=== PATIENT | female | born 1965 | race Caucasian/White ===

== ENCOUNTER 2020-09-15 08:15 | Outpatient (REF) | payer OTHER, SELFPAY ==
[2020-09-15 08:40] LABS: MANUAL DIFF FLAG NO
[2020-09-15 08:48] LABS: Basophils Absolute Auto 0.1 X10*3/uL (0.0-0.2); Basophils Percent Auto 0.8 % (0-2); Eosinophils Absolute Auto 0.1 X10*3/uL (0.0-0.4); Eosinophils Percent Auto 1.5 % (0-4); Hematocrit 42.5 % (37-47); Imm Gran Abs Auto 0.02 X10*3/uL (0.00-0.03); Imm Gran Pct Auto 0.3 % (0.0-0.4); Lymphocytes Absolute Auto 1.8 X10*3/uL (1.2-4.9); Lymphocytes Percent Auto 29.6 % (20-40); Mean Corpuscular HGB Conc 32.9 g/dl (31.0-35.0); Mean Corpuscular Hemoglobin 30.2 pg (27.0-33.0); Mean Corpuscular Volume 91.6 fL (80-98); Mean Platelet Volume 9.4 fL (9.4-12.3); Monocytes Absolute Auto 0.4 X10*3/uL (0.1-1.2); Monocytes Percent Auto 6.5 % (2-11); Neutrophils Absolute Auto 3.7 X10*3/uL (2.0-8.3); Neutrophils Percent Auto 61.3 % (45-73); Platelet Count 355 X10*3/uL (160-400); Red Blood Count 4.64 X10*6/uL (4.20-5.50); Red Cell Distribution Width 11.8 % (11.0-16.0)
[2020-09-15 09:08] LABS: Alanine Aminotransferase 29 U/L (0-31); Albumin Level 4.1 g/dL (3.5-5.0); Alkaline Phosphatase 96 U/L (39-117); Anion Gap 11 (12-20); Aspartate Amino Transferase 18 U/L (5-31); Bilirubin Total 0.4 mg/dL (0.0-1.0); Blood Urea Nitrogen 12 mg/dL (9-16); Carbon Dioxide 28 mmol/L (22-29); Chloride 105 mmol/L (96-108); Cholesterol 288 mg/dL; Estimated Glomerular Filt Rate > 60; Glucose Fasting 101 mg/dL (60-99); HDL Cholesterol 49 mg/dL; LDL Cholesterol Calculated 196 mg/dl; Potassium 4.3 mmol/l (3.3-5.1); Sodium 140 mmol/L (135-145); Total Protein 6.5 g/dL (6.5-8.0); Triglycerides 216 mg/dL
[2020-09-15 09:20] LABS: TSH reflex Free T4 1.21 mIU/mL (0.32-4.0)
[2020-09-15 09:36] LABS: Estimated Average Glucose 114 mg/dL; Hemoglobin A1c % 5.6 %
== END 2020-09-15 08:16 | disposition home or self-care (01) ==
LOC: HO.LAB 08:15
PROVIDERS: PCP Physician Assistant; Visit Provider Physician Assistant
DX: E78.5 Hyperlipidemia, unspecified (principal)
CPT/HCPCS: 36415; 80053; 80061; 83036; 84443; 85025

== ENCOUNTER 2020-10-31 08:11 | Day surgery (SDC) | payer OTHER, SELFPAY ==
[2020-10-27 10:55] VITALS: BMI 39.3
--- NOTE | 2020-10-30 09:46 | HO.ANESPROP2 ---
Documented by User: Ana María Mason 10/30/20 09:47 HPI - Anesthesia Eval Consult details Narrative: 55yo F for Colonoscopy PMFSH Past Medical History Medical History Arthritis History of anxiety History of depression Hyperlipidemia Surgical History Surgical History Hx of section Hx of colonoscopy Social History Social History Smoking Status: Never smoker Use of substances other than those prescribed or required for medical reasons: No Have you been hit, kicked, punched, or otherwise hurt by someone within the past year? If so, by whom?: No Advance Directives: No Advance Directives Information Provided: No Advance Directives on File: No Recently lost weight without trying: No Meds Allergies Allergy/AdvReac Type Severity Reaction Status Date / Time No Known Allergies Allergy Unverified 10/27/20 10:55 [No Known Allergies*] Exam Exam Date and Time: October 30, 2020 0946 Height,Weight and Vital Signs: Height 5 ft 2 in Weight 97.522 kg Pertinent Lab Results Pertinent Lab Results: Laboratory Tests 09/15/20 12 08:22 08:22 WBC 6.0 Hgb 14.0 Hct 42.5 Plt Count 355 Sodium 140 Potassium 4.3 Chloride 105 Carbon Dioxide 28 BUN 12 Creatinine 0.67 Assessment and Plan Assessment Anesthesia Assessment: Chart Reviewed Documented by User: Citlaly Ryan 10/31/20 08:54 PMFSH Past Medical History Medical History Arthritis History of anxiety History of depression Hyperlipidemia Surgical History Surgical History Hx of section Hx of colonoscopy Social History Social History Smoking Status: Never smoker Use of substances other than those prescribed or required for medical reasons: No Have you been hit, kicked, punched, or otherwise hurt by someone within the past year? If so, by whom?: No Advance Directives: No Advance Directives Information Provided: No Advance Directives on File: No Recently lost weight without trying: No Meds Allergies Allergy/AdvReac Type Severity Reaction Status Date / Time No Known Allergies Allergy Unverified 10/27/20 10:55 [No Known Allergies*] Exam Airway Mallampati Class: III (Very poor mouth opening) TM Dist: >3cm Neck ROM: Full Loose/Missing/Broken Teeth: No Heart: RRR Lungs: CTA Assessment and Plan Assessment Anesthesia Assessment: Anesthesia Plan Discussed and Chart Reviewed Final Anesthetic Review NPO: Yes ASA Class: II Final Preanesthetic Review: Meds/Allgs Chart Reviewed, Consent Obtained/Reviewed and Anes Risks/Benef Reviewed Patient Risk: Low Procedure Risk: Low Anesthetic Plan Anesthetic Plan: MAC: Disposition: Standard PACU
[2020-10-31 08:43] VITALS: BP 120/73; PULSE 69; RESP 17; TEMP 36.2; O2SAT 97
[2020-10-31] MEDS: Lactated Ringers 1,000 ML 100 ML IVCONT (08:59)
--- NOTE | 2020-10-31 08:59 | P.HPSUR_ITS ---
Pre-Procedural Eval Section A The patient is an INPATIENT: No The History & Physical has been completed within 30 days and I have reviewed it.: No Section B Chief Complaint: Screening Details of Present Illness: 55-year-old female female personal history are colon polyp due for polyp surveillance colonoscopy. She has no GI complaints. Relevant Family History (Specify if Yes): No Relevant Social History: None Present Medications: see Short Stay Collaborative assessment Medical History: Significant History ( Anxiety. Depression. Hy perlipidemia. Gestational diabetes. Cervical radiculopathy. vitamin D deficiency. Vertigo. ) History of Previous Operations: Relevant previous surgery/procedure and date(s) (C section in 2005) Allergies: Allergies Allergy/AdvReac Type Severity Reaction Status Date / Time No Known Allergies Allergy Unverified 10/27/20 10:55 [No Known Allergies*] Review of Systems Sugical H&P ROS: Negative: Constitution, Cardiovascular, Respiratory and Gastrointestinal and Yes, Specify: Psychiatric (anxiety) Exam Surgical H&P Exam: Normal: Heart, Normal: Lungs, Normal: Extremities and Normal: Abdomen Plan Diagnosis/Plan: Unchanged I have reviewed the history and physical and performed a pertinent physical examination on my patient. No changes have occurred unless specified.
--- NOTE | 2020-10-31 08:59 | W.PM.OPN ---
Operative Note Operative Note Date of Service: 10/31/20 Narrative: Pre-op diagnosis: Colon cancer screening, history of colon polyps Post-op diagnosis: other (Colon polyps, diverticulosis, hemorrhoids) Procedure: COLONOSCOPY TILL CECUM WITH SNARE POLYPECTOMY Consent: Indications for the procedure and potential complications of bleeding, perforation, reaction to medications and missed diagnosis were discussed with the patient and informed consent was obtained. Instrument: Olympus PCF H 190 L variable stiffness pediatric colonoscope Monitoring: Vital signs and clinical assessment, intermittent blood pressure monitoring, continuous EKG monitoring, Pulse oximetry and Carbon Dioxide monitoring were done throughout the procedure. Colon withdrawl time was 32 minutes. Procedure: The patient was placed in the left lateral decubitis position and pre-procedure medications were administered. After a digital rectal examination of the ano-rectum, the video colonoscope was inserted into the rectum and advanced through the colon to the cecum. The colonoscope was slowly withdrawn in a retrograde panoramic fashion and the colon mucosa was carefully examined including a retroflexed view of the rectum. Findings and interventions are described below. Procedure Difficulty: Without difficulty Findings: Terminal Ileum: Not evaluated Cecum: Normal Ascending Colon: A 10-12 mm sessile polyp removed with a hot snare. A 2nd 10 mm sessile polyp (behind a fold in the mid AC) was seen briefly and not seen again despite multiple passes through the area and retroflexion of the colonoscopy Transverse Colon: Two 10-15 mm sessile polyps removed with a hot snare. Descending Colon: Normal Sigmoid Colon: A 10 mm sessile polyp removed with a hot snare and moderate diverticulosis Rectum: A 2 cm sessile polyp removed with a hot snare. Ano-rectum: Moderate internal hemorrhoids Colon preparation: Good Impression and Post Procedure Diagnosis: Colonoscopy Findings: Five polyps removed. A sixth 9 - 10 mm sessile polyp (behind a fold in the mid AC) was seen briefly and not seen again despite multiple passes through the area and retroflexion of the colonoscopy Moderate diverticulosis seen in the sigmoid colon Moderate hemorrhoids on retroflexed exam. Plan: Await pathology results Patient has an appointment on 11/11/20 in the [facility] with TERE Colby. Repeat Colonoscopy in 1 year since multiple polyps were removed and one polyp was seen briefly and was not removed. Above findings were reviewed with the patient and colon polyps and diverticulosis handouts were given in the discharge area Surgeon: Carlos Guzman MD Anesthesia: MAC (ELIZABETH Warner) Estimated blood loss (mL): 0 Pathology: other (A. AC polyp x 1, B. TC polyps x 2, C. SC polyp x 1, D. rectal polyp x 1) Condition: stable Disposition: PACU
[2020-10-31 10:05] VITALS: BP 96/57; PULSE 61; RESP 16; TEMP 36.2; O2SAT 96
[2020-10-31 10:22] VITALS: BP 109/67; PULSE 64; RESP 16; TEMP 36.2; O2SAT 97
[2020-10-31 10:37] VITALS: BP 115/73; PULSE 61; RESP 16; TEMP 36.2; O2SAT 98
--- NOTE | 2020-10-31 10:53 | HO.POSTANES ---
Post Anesthesia Evaluation Post Anesthesia Evaluation Vital Signs: Vital Signs Temp Pulse Resp BP Pulse Ox 10/31/20 10:37 97.2 F 61 16 115/73 98 10/31/20 10:22 97.1 F 64 16 109/67 97 10/31/20 10:05 97.1 F 61 16 96/57 L 96 10/31/20 08:43 97.1 F 69 17 120/73 97 Anesthesia: Monitored Mental Status: Awake Pain Control: Satisfactory Nausea/Vomiting: None Hydration: Adequate Anesthesia-Related Issues: No Anes. Related Issues
== END 2020-10-31 10:57 | disposition home or self-care (01) ==
PROVIDERS: PCP Physician Assistant; Visit Provider Internal Medicine Gastroenterology
PROC: 0DJD8ZZ Inspection of Lower Intestinal Tract, Via Natural or Artificial Opening Endoscopic (ICD-10-PCS; CPT 45378; principal; 2020-10-31 10:30)
DX: Z12.11 Encounter for screening for malignant neoplasm of colon (principal); Z86.010 Personal history of colon polyps; D12.2 Benign neoplasm of ascending colon; D12.3 Benign neoplasm of transverse colon; D12.5 Benign neoplasm of sigmoid colon; D12.8 Benign neoplasm of rectum; K57.30 Diverticulosis of large intestine without perforation or abscess without bleeding; K64.8 Other hemorrhoids
CPT/HCPCS: 45385; 88305

== ENCOUNTER → 2020-11-11 11:30 | Outpatient (BNVA) | payer OTHER, SELFPAY | PROVIDERS: PCP Physician Assistant; Visit Provider Physician Assistant ==

== ENCOUNTER 2021-07-28 08:08 | Outpatient (REF) | payer OTHER, SELFPAY ==
--- NOTE | 2021-07-28 09:45 | MHC.AU.ANO ---
Adult Audiological Evaluation Date of Visit: 07/28/21 Bowling Ball Patcher Used: Not Applicable Reason for Appointment: Audiologic evaluation due to bothersome tinnitus which has increased over the past 18 months. The tinnitus seems to fluctuate for both ears; however, it seems to be more prominent in the left ear. Lissa reports a history of intermittent Positional Vertigo which benefits from Vestibular Rehabilitation and also experiences intermittent migraines with nausea and vomiting. She does not report any hearing difficulties or history of noise exposure. Lissa notes that, many years ago, she did experience one episode of head trauma when moving a dresser off a moving truck which hit the left side of her head. Vertigo occurred immediately following the head trauma. With further discussion of Lissa's history, it is noted her stress and anxiety has increased due to family illness over the past year; however, she has experienced the tinnitus long before this time. Does patient feel they have a hearing loss?: No Has hearing been tested previously?: No Hearing Handicap Inventory: HHIE SCORE: 0 Based on HHIE score, patient has: No perceived hearing handicap Ear History: Family History of Hearing Loss?: Yes: Parents Bothersome Tinnitus/Ringing/Noises in Ears: Both Ears Ear used on the phone: Right Ear History of occupational noise exposure?: No History: History: No Medical History: Medical History: Migraines Medication List: None Otoscopy: Right Ear: Unremarkable Left Ear: Unremarkable Tympanometry: Tympanometry performed due to: To assess integrity of the middle ear system Right Ear: Normal with Reduced Middle Ear Compliance (Type As) Left Ear: Normal Middle Ear System (Type A) Otoacoustic Emissions Frequency Range Used: 1.6-8 kHz Right Ear Results: Present Emissions Analysis: Present emissions suggest normal cochlear function Rules out peripheral hearing loss greater than a mild degree Left Ear Results: Present 1007-4540 Hz, Absent 7226-5377 Hz Analysis: Present emissions suggest normal cochlear function Reduced/Absent emissions suggest cochlear dysfunction Hearing Evaluation: Transducer(s) Used: Insert Earphones Bone Conduction Method: Conventional Audiometry Stimuli Used: Pure Tones Right Ear: Description of Hearing: Normal hearing thresholds 250-8000 Hz. Left Ear: Description of Hearing: Normal hearing levels 250-3000 Hz, dropping to a moderate sensorineural hearing loss at 9191-9755 Hz, rising to normal hearing at 8000 Hz. Speech Recognition Threshold (SRT): Method Used: Monitored Live Voice Stimuli Used: Spondee Words Right Ear: 0 dB HL Left Ear: 0 dB HL Word Discrimination: Method: Recorded Lists Word Lists Used: NU-6 Right Ear: 100% at 45 dB HL Left Ear: 100% at 45 dB HL Interpretation of Results: Often the notched moderate sensorineural hearing loss for the left ear at 4000 and 6000 Hz is seen with acoustic trauma; however, Lissa reports she has no history of noise exposure. This high frequency sensorineural hearing loss may relate to the perception of tinnitus which often if greater in the left ear. We discussed the various theories of tinnitus today including how stress, anxiety, fatigue, and pain may influence the perception of tinntius. Lissa already implements managment strategies such as sound therapy to try to reduce the perception of the tinnitus. She is not interested in trying a tinnitus masker at this time. Recommendations: Due to the asymmetric hearing loss, tinnitus, and history of vertigo and migraines, advise medical consultation with an Certified Registered Locksmith for further assessment of the symptoms. Audiological re-evaluation in one year. Will send a reminder card. If tinnitus or hearing symptoms increase before that time, an earlier appointment may be scheduled. Diagnosis: Primary Diagnosis: H93.13 Tinnitus, Bilateral Secondary Diagnosis: H90.42 SNHL Unilateral Left Side, W/Unrestricted Contralateral Hearing Services Performed: Comprehensive Audiological Evaluation (CPT 58334) Diagnostic Otoacoustic Emissions (CPT 79302, 26+TC) Tympanometry (CPT 77299) Signature: Provider: Radha Long, [facility]
== END 2021-07-28 08:09 | disposition home or self-care (01) ==
LOC: HO.SH 08:08
PROVIDERS: Visit Provider Physician Assistant
DX: H93.13 Tinnitus, bilateral (principal); H90.42 Sensorineural hearing loss, unilateral, left ear, with unrestricted hearing on the contralateral side
CPT/HCPCS: 92557; 92567; 92588

== ENCOUNTER → 2021-09-08 08:15 | Outpatient (BNVA) | payer OTHER, SELFPAY | PROVIDERS: Visit Provider Nurse Practitioner | DX: D12.6 Benign neoplasm of colon, unspecified (principal) ==

== ENCOUNTER 2021-09-09 13:22 | Outpatient (REF) | payer OTHER, SELFPAY ==
[2021-09-09 13:40] LABS: MANUAL DIFF FLAG NO
[2021-09-09 14:13] LABS: Basophils Absolute Auto 0.1 X10*3/uL (0.0-0.2); Basophils Percent Auto 0.6 % (0-2); Eosinophils Absolute Auto 0.1 X10*3/uL (0.0-0.4); Hematocrit 42.3 % (37.0-47.0); Imm Gran Abs Auto 0.03 X10*3/uL (0.00-0.03); Imm Gran Pct Auto 0.3 % (0.0-0.4); Lymphocytes Absolute Auto 2.8 X10*3/uL (1.2-4.9); Lymphocytes Percent Auto 29.1 % (20-40); Mean Corpuscular HGB Conc 33.1 g/dl (31.0-35.0); Mean Corpuscular Hemoglobin 30.2 pg (27.0-33.0); Mean Corpuscular Volume 91.2 fL (80.0-98.0); Mean Platelet Volume 9.7 fL (9.4-12.3); Monocytes Absolute Auto 0.7 X10*3/uL (0.1-1.2); Monocytes Percent Auto 7.4 % (2-11); Neutrophils Absolute Auto 5.9 x10*3/uL (2.0-8.3); Neutrophils Percent Auto 61.6 % (45-73); Platelet Count 400 X10*3/uL (160-400); Red Blood Count 4.64 X10*6/uL (4.20-5.50); White Blood Count 9.6 X10*3/uL (4.8-10.8)
[2021-09-09 14:44] LABS: Alanine Aminotransferase 45 U/L (0-31); Albumin Level 4.1 g/dL (3.5-5.0); Alkaline Phosphatase 100 U/L (39-117); Anion Gap 14 (12-20); Aspartate Amino Transferase 23 U/L (5-31); Bilirubin Total 0.4 mg/dL (0.0-1.0); Blood Urea Nitrogen 13 mg/dL (9-16); Calcium 9.7 mg/dL (8.4-10.2); Carbon Dioxide 26 mmol/L (22-29); Chloride 105 mmol/L (96-108); Cholesterol 323 mg/dL; Estimated Glomerular Filt Rate > 60; Glucose Random 99 mg/dL (60-115); HDL Cholesterol 49 mg/dL; LDL Cholesterol Calculated 218 mg/dl; Potassium 4.7 mmol/L (3.3-5.1); Sodium 140 mmol/L (135-145); Total Protein 6.8 g/dL (6.5-8.0); Triglycerides 284 mg/dL
== END 2021-09-09 13:23 | disposition home or self-care (01) ==
LOC: HO.LAB 13:22
PROVIDERS: PCP Physician Assistant; Visit Provider Nurse Practitioner
DX: D12.6 Benign neoplasm of colon, unspecified (principal); E78.5 Hyperlipidemia, unspecified
CPT/HCPCS: 36415; 80053; 80061; 85025

== ENCOUNTER 2021-12-18 10:25 | Outpatient (REF) | payer OTHER, SELFPAY ==
--- NOTE | ~2021-12-18 | XR_ITS ---
EXAMINATION: XR CHEST CLINICAL INFORMATION: Cough COMPARISON: Previous chest x-ray March 2015 TECHNIQUE: 2 views of the chest were obtained. FINDINGS: The cardiac and mediastinal contours are stable. The lungs are clear. There is no pleural effusion or pneumothorax. There are degenerative changes of the spine area there is arthritis at the shoulder joints. XR/XR chest 2V IMPRESSION: No evidence for acute disease in the chest.
== END 2021-12-18 10:26 | disposition home or self-care (01) ==
LOC: HO.XRAY 10:25
PROVIDERS: PCP Physician Assistant; Visit Provider Nurse Practitioner Family
DX: R05.9 Cough, unspecified (principal)
CPT/HCPCS: 71046

== ENCOUNTER 2022-02-02 07:58 | Day surgery (SDC) | payer OTHER, SELFPAY ==
--- NOTE | 2021-10-14 12:04 | P.CONAN_ITS ---
HPI - Anesthesia Eval Consult details Narrative: 56yo F for Colon[facility] Problems Active Problems: All Active Problems (Updated 09/25/21 @ 09:43 by PEDRO Rain) Cough (Acute) Rhinitis (Acute) Otitis media (Acute) Hematochezia (Acute) Gastrointestinal multiple polyposis syndrome (Acute) Tinnitus, bilateral (Acute) HLD (hyperlipidemia) (Acute) ABBY (generalized anxiety disorder) (Acute) Past Medical History Medical History Arthritis Colon adenomas History of anxiety History of depression Hyperlipidemia Family History Family History (Updated 09/25/21 @ 09:16 by MANUEL Barraza) Paternal Grandmother FH: colon cancer Paternal Aunt FH: colon cancer Mother Colon polyps Surgical History Surgical History Hx of section Hx of colonoscopy Social History Social History (Updated 09/25/21 @ 09:16 by MANUEL Barraza) Household Members: Sp[facility] Alcohol intake: former Year quit: 25 Patient Tobacco Use Status: Never used Tobacco e-Cigarette/Vaping Use: Never Used Second Hand Smoke Exposure: No service: No Current occupational status: employed 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[employer] Cognitive needs: No Hearing needs: No Vision needs: Yes (glasses) Meds Allergies Allergy/AdvReac Type Severity Reaction Status Date / Time No Known Allergies Allergy Verified 09/25/21 09:39 [No Known Allergies*] Home Medications Medication Instructions Recorded Confirmed Last Taken Type acetaminophen 325 mg tablet 650 mg PO 10/31/20 09/25/21 10/31/20 History (Tylenol) Exam Exam Date and Time: October 14, 2021 1204 Pertinent Lab Results Pertinent Lab Results: Laboratory Tests 09/09/21 09/09/21 13:35 13:35 WBC 9.6 Hgb 14.0 Hct 42.3 Plt Count 400 Sodium 140 Potassium 4.7 Chloride 105 Carbon Dioxide 26 BUN 13 Creatinine 0.66 Assessment and Plan Assessment Anesthesia Assessment: Chart Reviewed
[2022-02-02 08:08] VITALS: BMI 39.9
[2022-02-02 08:22] VITALS: BP 140/95; PULSE 61; RESP 18; TEMP 36.8; O2SAT 98
--- NOTE | 2022-02-02 08:26 | MHC.SHP ---
Pre-Procedural Eval Section A Date of Service: 02/02/22 Section B Chief Complaint: rectal bleeding Details of Present Illness: FH of CRC in aunts, grandmother Relevant Family History (Specify if Yes): Yes Relevant Social History: None Present Medications: see Short Stay Collaborative assessment Medical History: Significant History (Arthritis History of anxiety History of depression Hyperlipidemia) History of Previous Operations: Relevant previous surgery/procedure and date(s) (colonoscopy, ) Allergies: Allergies Allergy/AdvReac Type Severity Reaction Status Date / Time No Known Allergies Allergy Verified 12/18/21 09:04 [No Known Allergies*] Review of Systems Sugical H&P ROS: Negative: Constitution, Cardiovascular, Respiratory, Neurological, Psychiatric, Hem-Onc, Allergic/Immunologic, Gastrointestinal, Genitourinary, Musculoskeletal, Integumentary, Endocrine and Eyes/Ears/Nose/Throat Exam Surgical H&P Exam: Normal: HEENT, Normal: Heart, Normal: Lungs, Normal: Extremities, Normal: Abdomen, Normal: Skin and Normal: Neurological Plan Diagnosis/Plan: Unchanged I have reviewed the history and physical and performed a pertinent physical examination on my patient. No changes have occurred unless specified.
--- NOTE | 2022-02-02 08:51 | P.BOP_ITS ---
Brief Operative Note Date of Service: 02/02/22 Pre-op diagnosis: hx of rectal bleeding and colon polyps, FH of cRC Post-op diagnosis: same Procedure: see op note Surgeon: Nava Ring MD Anesthesia: MAC Was an Copping Machine Operator used for this Procedure?: No Estimated blood loss (mL): 0 Condition: stable Disposition: PACU
--- NOTE | 2022-02-02 08:51 | W.PM.OPN ---
Operative Note Operative Note Date of Service: 02/02/22 Narrative: Operative Information Procedure Description: Colonoscopy Indication: hx of rectal bleeding and colon polyps, FH of CRC Anesthesia: MAC COLONOSCOPY Instrument: Olympus variable stiffness adult scope 190L Colonoscopy Monitoring: Vital signs and clinical assessment, continuous EKG monitoring, Pulse oximetry, Carbon Dioxide monitoring and blood pressure monitoring were done throughout the procedure. Colon withdrawal time was 13 minutes. Procedure: The patient was placed in the left lateral decubitis position and pre-procedure medications were administered. After a digital rectal examination of the ano-rectum, the video colonoscope was inserted into the rectum and advanced through the colon to the cecum/TI. The colonoscope was slowly withdrawn in a retrograde panoramic fashion and the colon mucosa was carefully examined including a retroflexed view of the rectum. Findings and interventions are described below. Procedure Difficulty: easy Findings: Terminal Ileum-normal Right sided retroflexion was normal Cecum:normal Ascending Colon: diminutive polyp 3-4 mm removed with cold forceps Transverse Colon -normal Descending Colon:10 mm sessile polyp removed with cold snare Sigmoid Colon: mild to moderate diverticulosis Rectum: Retroflexion with small internal hemorrhoids, grade I with skin tags Anorectum - normal Colon preparation: [place] Bowel Preparation Scale Right colon; 2 Transverse colon: 2 Left colon; 2 (0 = Unprepared colon segment with mucosa not seen due to solid stool that cannot be cleared. 1 = Portion of mucosa of the colon segment seen, but other areas of the colon segment not well seen due to staining, residual stool and/or opaque liquid. 2 = Minor amount of residual staining, small fragments of stool and/or opaque liquid, but mucosa of colon segment seen well. 3 = Entire mucosa of colon segment seen well with no residual staining, small fragments of stool or opaque liquid) Impression and Post Procedure Diagnosis: polyps internal hemorrhoids diverticular disease Plan: High fiber diet leaflet Avoid straining at stool, epsom salts and sitz bath, anusol supps or cream Repeat Colonoscopy in 5 years due to FH of CRC or earlier if clinically indicated Above findings were reviewed with the patient and relevant handouts were provided if indicated.
--- NOTE | 2022-02-02 08:59 | HO.ANESPROP2 ---
HPI - Anesthesia Eval Consult details Narrative: 56 yo female patient for colonoscopy [facility] Active Problems Active Problems: All Active Problems (Updated 12/18/21 @ 09:36 by ULI Yancey) COVID-19 virus infection (Acute) HLD (hyperlipidemia) (Acute) ABBY (generalized anxiety disorder) (Acute) Tinnitus, bilateral (Acute) Gastrointestinal multiple polyposis syndrome (Acute) Hematochezia (Acute) Otitis media (Acute) Rhinitis (Acute) Cough (Acute) Increased BMI. Denies STACEY Past Medical History Medical History Arthritis Colon adenomas History of anxiety History of depression Hyperlipidemia Family History Family History Paternal Grandmother FH: colon cancer Paternal Aunt FH: colon cancer Mother Colon polyps Family history of problems with anesthesia: No Surgical History Surgical History Hx of section Hx of colonoscopy History of Problems with Anesthesia: No Social History Social History Household Members: Spouse Housing: Condominium Alcohol intake: former Year quit: 25 Patient Tobacco Use Status: Never used Tobacco e-Cigarette/Vaping Use: Never Used Second Hand Smoke Exposure: No Use of substances other than those prescribed or required for medical reasons: No Are you DNR?: No Advance Directives: No Advance Directives Information Provided: Yes Patient : No (menopausal) service: No Current occupational status: employed 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[employer] Cognitive needs: No Hearing needs: No Vision needs: Yes (glasses) Meds Allergies Allergy/AdvReac Type Severity Reaction Status Date / Time No Known Allergies Allergy Verified 12/18/21 09:04 [No Known Allergies*] Active Medications: Current Medications Lactated Ringer's (Lr) 1,000 mls @ 100 mls/hr IVCONT .Q10H [facility] Home Medications Medication Instructions Recorded Confirmed Last Taken Type acetaminophen 325 mg tablet 650 mg PO 10/31/20 12/18/21 10/31/20 History (Tylenol) Exam Exam Date and Time: February 02, 2022 0859 Height,Weight and Vital Signs: Height 5 ft 2 in Weight 98.883 kg Last Vital Signs Temp 98.3 F 02/02/22 08:22 Pulse 61 02/02/22 08:22 Resp 18 02/02/22 08:22 BP 140/95 H 02/02/22 08:22 Pulse Ox 98 02/02/22 08:22 Airway Mallampati Class: IV (Very small mouth opening) TM Dist: >3cm Neck ROM: Full Loose/Missing/Broken Teeth: Yes (Some extractions) Heart: RRR Lungs: CTAB Assessment and Plan Assessment Anesthesia Assessment: Anesthesia Plan Discussed and Chart Reviewed Final Anesthetic Review Family History of Problems with Anesthesia: No History of Problems with Anesthesia: No NPO: Yes ASA Class: III Final Preanesthetic Review: No Changes in Pt Med Stat, Meds/Allgs Chart Reviewed, Consent Obtained/Reviewed and Anes Risks/Benef Reviewed Patient Risk: Intermediate Procedure Risk: Low Assessment/Block/Sedation in SS: Assess/Block/Sedation-SS Anesthetic Plan Anesthetic Plan: MAC: Disposition: Standard PACU
[2022-02-02] MEDS: Lactated Ringers 1,000 ML 100 ML IVCONT (09:02)
[2022-02-02 09:38] VITALS: BP 115/67; PULSE 67; RESP 16; TEMP 36.5; O2SAT 95
[2022-02-02 09:53] VITALS: BP 144/76; PULSE 60; RESP 16; TEMP 36.5; O2SAT 95
== END 2022-02-02 10:23 | disposition home or self-care (01) ==
PROVIDERS: PCP Physician Assistant; Visit Provider Internal Medicine Gastroenterology
PROC: 0DJD8ZZ Inspection of Lower Intestinal Tract, Via Natural or Artificial Opening Endoscopic (ICD-10-PCS; CPT 45378; principal; 2022-02-02 09:10)
DX: D12.6 Benign neoplasm of colon, unspecified (principal); K62.5 Hemorrhage of anus and rectum; Z86.010 Personal history of colon polyps; D12.2 Benign neoplasm of ascending colon; D12.4 Benign neoplasm of descending colon; K57.30 Diverticulosis of large intestine without perforation or abscess without bleeding; K64.0 First degree hemorrhoids; K64.4 Residual hemorrhoidal skin tags; R53.83 Other fatigue; M19.90 Unspecified osteoarthritis, unspecified site; E78.5 Hyperlipidemia, unspecified; F32.9 Major depressive disorder, single episode, unspecified; F41.1 Generalized anxiety disorder; Z79.899 Other long term (current) drug therapy
CPT/HCPCS: 45385; 45380; 88305

== ENCOUNTER 2022-06-07 08:46 | Outpatient (REF) | payer OTHER, SELFPAY | END 2022-06-07 08:47 | disposition home or self-care (01) | LOC: HO.MRI 08:46 | PROVIDERS: Visit Provider Otolaryngology | DX: Z13.89 Encounter for screening for other disorder (principal) ==

== ENCOUNTER → 2023-02-22 10:52 | Outpatient (BNVA) | payer OTHER, SELFPAY | PROVIDERS: PCP Physician Assistant; Visit Provider Orthopaedic Surgery | DX: M19.041 Primary osteoarthritis, right hand (principal); M19.042 Primary osteoarthritis, left hand; M18.12 Unilateral primary osteoarthritis of first carpometacarpal joint, left hand; M18.11 Unilateral primary osteoarthritis of first carpometacarpal joint, right hand; R20.0 Anesthesia of skin; R20.2 Paresthesia of skin | CPT/HCPCS: 99202 ==

== ENCOUNTER 2023-03-29 07:55 | Outpatient (REF) | payer OTHER, SELFPAY ==
--- NOTE | ~2023-03-29 | XR_ITS ---
EXAMINATION: XR HAND, RIGHT CLINICAL INFORMATION: Hand pain COMPARISON: None available. TECHNIQUE: PA, lateral, and oblique views of the right hand. FINDINGS: No acute fracture or dislocation. Moderate degenerative changes of the hand and wrist involving the first carpometacarpal joint and third through fourth PIP and DIP joints with loss of joint space. Soft tissues are unremarkable.. XR/XR hand RT min 3V IMPRESSION: Moderate degenerative changes of the hand and wrist.
== END 2023-03-29 07:56 | disposition home or self-care (01) ==
LOC: HO.HOSX 07:55
PROVIDERS: Visit Provider Orthopaedic Surgery
DX: M18.11 Unilateral primary osteoarthritis of first carpometacarpal joint, right hand (principal); M19.041 Primary osteoarthritis, right hand; R20.0 Anesthesia of skin; R20.2 Paresthesia of skin
CPT/HCPCS: 20600; 73130; 99212; J1020

== ENCOUNTER 2023-07-14 07:18 | Outpatient (REF) | payer OTHER, SELFPAY ==
[2023-07-14 07:42] LABS: Hematocrit 41.6 % (37.0-47.0); Mean Corpuscular HGB Conc 33.7 g/dl (31.0-35.0); Mean Corpuscular Hemoglobin 30.4 pg (27.0-33.0); Mean Corpuscular Volume 90.4 fL (80.0-98.0); Mean Platelet Volume 9.2 fL (9.4-12.3); Platelet Count 367 X10*3/uL (160-400); White Blood Count 6.9 X10*3/uL (4.8-10.8)
[2023-07-14 08:12] LABS: Alanine Aminotransferase 22 U/L (0-31); Alkaline Phosphatase 90 U/L (39-117); Anion Gap 16 (12-20); Aspartate Amino Transferase 17 U/L (5-31); Bilirubin Total 0.7 mg/dL (0.0-1.0); Blood Urea Nitrogen 11 mg/dL (9-16); Calcium 9.7 mg/dL (8.4-10.2); Carbon Dioxide 21 mmol/L (22-29); Chloride 107 mmol/L (96-108); Cholesterol 250 mg/dL (<200); Estimated Glomerular Filt Rate > 60; Glucose Fasting 118 mg/dL (60-99); HDL Cholesterol 48 mg/dL (>40); LDL Cholesterol Calculated 173 mg/dL (<100); Potassium 3.9 mmol/L (3.3-5.1); Sodium 140 mmol/L (135-145); Total Protein 6.7 g/dL (6.5-8.0); Triglycerides 146 mg/dL (<150)
== END 2023-07-14 07:19 | disposition home or self-care (01) ==
LOC: HO.LAB 07:18
PROVIDERS: PCP Physician Assistant; Visit Provider Physician Assistant
DX: Z13.1 Encounter for screening for diabetes mellitus (principal); Z13.0 Encounter for screening for diseases of the blood and blood-forming organs and certain disorders involving the immune mechanism; E78.2 Mixed hyperlipidemia
CPT/HCPCS: 36415; 80053; 80061; 85027

== ENCOUNTER 2023-07-19 08:26 | Outpatient (AMB) | payer OTHER, SELFPAY ==
--- NOTE | 2023-07-19 08:29 | MHC.PC.OV ---
Vital Signs 07/19/23 08:32 Height 5 ft 2 in Weight 219 lb BMI 40.1 BP 124/86 Blood Pressure Location Lt brachial Position Sitting Pulse 66 Pulse Source Pulse Oximeter Pulse Oximetry (%) 96 Oxygen Delivery Method Room Air Intake Visit Reasons: f/u HLD Intake Note: Patient here for a follow up HLD Care Asst Required: No Accompanied by: Self / Same As Patient Allergies No Known Allergies [No Known Allergies*] Allergy (Verified 07/19/23 08:41) Medication List - Last Reconciled 07/19/23 by Kunal Bal PA-C acetaminophen (Tylenol) 650 mg PO clonazepam 0.5 mg (1/2 x 1 mg) PO BID 30 days pravastatin 20 mg PO BEDTIME Tobacco use date assessed: 01/18/23 Dental Screening Dental Screen Date: 07/19/23 Did you have a dental visit in the last 12 months?: Yes Did you have a dental problem in the last 6 months where you did not have access to dental care?: No Was dental information given to patient?: Patient has dentist HPI f/u HLD HPI Details Lynette is a 58-year-old female here today for a visit.? Patient has a past medical history significant for hyperlipidemia, generalized anxiety disorder.? Concerns--> report having some dizzy spell as of late. She does have history of benign positional paroxysmal vertigo. She would like to restart vestibular therapy. She does not take any medication for her dizziness. She is somewhat concerned about her heart condition and reviewed previous EKG and January of 2020 to with normal sinus rhythm. We did discuss the possibility of doing a cardiac stress test though patient declines at this time Also having neck pain, does have cervical spine disease. She report lidociane patches which does help reduce her pain. Hand osteoarthritis: Followed by [facility] and has been getting injections in her hands. .. Generalized anxiety disorder:? Patient has been under lot of stress due to family issues and her mom's failing health.? She does use clonazepam on nearly daily basis for her anxiety and sleep. .. Hyperlipidemia:? Patient's most recent fasting lipids continued elevated total cholesterol and LDL though much improved since starting statin. ? Of note does have a family history of coronary artery disease and peripheral artery disease. . Obese: Patient does understand her BMI is well over 30 and will work on being more physically active and adapting to better eating habits to reduce her weight. Labs: Reviewed labs with patient and noted a elevated fasting blood sugar 118. She will work on lifestyle modifications and a low-carbohydrate diet Laboratory Tests 09/09/21 07/14/23 13:35 07:28 RBC 4.60 Triglycerides 284 Cholesterol 323 250 H LDL Cholesterol, C alc 218 173 H [facility] Medical History Colon adenomas Arthritis History of depression History of anxiety Hyperlipidemia Surgical History Hx of colonoscopy Hx of section Family History Paternal Grandmother FH: colon cancer Paternal Aunt FH: colon cancer Mother Colon polyps Social History Household Members: Spouse Housing: Condominium Alcohol intake: former Year quit: 25 Patient Tobacco Use Status: Never used Tobacco e-Cigarette/Vaping Use: Never Used Second Hand Smoke Exposure: No service: No Current occupational status: employed 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 Esa Cool, Verona Weems, Vince Esquivel and colleagues, with an educational emmy from [employer]. Review of Systems Const Denies headache(s) Eyes Denies loss of vision ENT Reports vertigo, Reports dizziness, Denies headache(s) and Denies sore throat Card Denies chest pain, Denies leg edema and Denies lightheadedness Resp Denies cough, Denies hemoptysis and Denies wheezing GI Denies abdominal pain, Denies melena, Denies constipation, Denies diarrhea and Denies vomiting Denies urinary frequency, Denies dysuria and Denies urinary urgency Musc Denies arthralgias, Denies joint swelling, Denies numbness and Denies tingling Neuro Denies Abnormal speech present, Denies behavioral changes, Reports vertigo, Reports dizziness, Denies headache(s), Denies loss of vision, Denies memory loss, Denies numbness and Denies tingling Psych Denies anxiety, Denies behavioral changes, Denies depression, Denies memory loss and Denies panic attacks Jerome/Lymph Denies easy bleeding and Denies easy bruising Aller/Immun Denies wheezing Physical exam (Primary Care) Vital Signs: Last Vital Signs Pulse 66 07/19/23 08:32 BP 124/86 07/19/23 08:32 Pulse Ox 96 07/19/23 08:32 Oxygen Delivery Method Room Air 07/19/23 08:32 BMI result Body Mass Index 40.1 BMI Assessment/Plan discussion: High Tobacco/Smoking Status: Tobacco use Status Tobacco use date assessed 01/18/23 07/19/23 08:29 Patient Tobacco Use Status Never used Tobacco 07/19/23 08:29 e-Cigarette/Vaping Use Never Used 07/19/23 08:29 Thrive Assessment: Date of Thrive Assessment Date Thrive assessed 01/18/23 07/19/23 08:29 Const Other: Obese General: healthy appearing, no acute distress, alert and awake Nutritional Appearance: well nourished Orientation/consciousness: oriented to person, oriented to place and oriented to time HENMT Ears: TM's normal bilaterally General nose exam: Normal nasal mucous membranes and turbinates present Eyes Conjunctivae: conjunctivae normal Sclerae: sclerae normal Pupils: Equal, round and reactive pupils present Neck Neck: Yes no lymphadenopathy and Yes no JVD Thyroid: Thyroid normal Carotids: no bruits Resp Effort & Inspection: normal respiratory effort and not tachypneic Auscultation: no crackles, no rales, no rhonchi and no wheezes Cardio Rate: regular rate Rhythm: regular rhythm Heart sounds: no murmurs and normal S1 and S2 GI Palpation (GI): Soft to palpation, nontender, no hepatomegaly and no splenomegaly Auscultation: normal bowel sounds Skin General skin exam: no rashes or lesions noted and dry skin Neuro General: oriented to person, oriented to place and oriented to time Cranial nerves: Yes Equal, round and reactive pupils present Speech: No Abnormal speech present Gait exam (Neuro): Normal gait present Motor exam (neuro): no tremor noted Extrem Right upper extremity: full ROM Left upper extremity: full ROM Right lower extremity: full ROM; no edema Left lower extremity: full ROM; no edema Psych Mental Status: mental status grossly normal Speech and movement: Normal speech and movement present Affect: normal affect Attitude: cooperative Thought process: Normal thought process present Office Procedures Flu Questionnaire Does the patient have a severe egg allergy?: No Does the patient have severe life threatening allergies?: No Does the patient have a fever or illness today?: No Has the patient ever had Guillain-Paradox Syndrome?: No Has the patient ever had any past reaction to a flu shot?: No Immunizations flu vacc [id number] 6mos up(PF) 60 mcg(15 mcgx4)/0.5 mL IM syringe Performing Provider: Kunal Bal PA-C [facility] [place] [facility] Administered by: MANUEL Rajan on 07/19/23 09:18 Dose Route Admin Location Dispensed Lot Number Expiration Date NDC It Network Architect 0.5 mL IM Left Deltoid 0.5 mL [id number] 04/08/24 60624-504-47 [employer] VIS Given Date VIS Provided VIS Publication Date 07/19/23 Single Vaccine 21 Eligibility Eligibility Date Funding Source Not [facility] Eligible 07/19/23 Private Assessment and Plan Assessment & Plan (1) HLD (hyperlipidemia): Code(s): E78.5 - Hyperlipidemia, unspecified Qualifiers: Hyperlipidemia type: mixed hyperlipidemia Qualified Code(s): E78.2 - Mixed hyperlipidemia Plan: Patient does have very elevated total cholesterol and LDL. Does have a family history of coronary artery and PDA D disease. She has started statin therapy and total cholesterol and LDL have improved. (2) Obese: Code(s): E66.9 - Obesity, unspecified Qualifiers: Body mass index: BMI 40.0-44.9 Obesity classification: adult class 3 (BMI >= 40) Obesity type: due to excess calories Serious obesity comorbidity presence: without serious comorbidity Qualified Code(s): E66.01 - Morbid (severe) obesity due to excess calories; Z68.41 - Body mass index [BMI] 40.0-44.9, adult Plan: Patient does understand her BMI is over 30 will work on being more physically active and adapting to better eating habits to reduce her weight (3) ABBY (generalized anxiety disorder): Code(s): F41.1 - Generalized anxiety disorder Plan: Patient does use clonazepam on a p.r.n. basis for sleep and anxiety. She does have a lot of family stress causing worsening anxiety. (4) Hand arthritis: Code(s): M19.049 - Primary osteoarthritis, unspecified hand Plan: Patient does have bilateral hand wrist arthritis which she attributes to a genetic reason. 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 She is interested in occupational therapy to help with her dexterity, wood ski maker strength and hand pain. She has not seen hand surgeon in getting cortisone injections to help reduce her inflammation and pain in her hands. (5) BPPV (benign paroxysmal positional vertigo): Code(s): H81.10 - Benign paroxysmal vertigo, unspecified ear Qualifiers: Laterality: bilateral Qualified Code(s): H81.13 - Benign paroxysmal vertigo, bilateral Plan: She has been experiencing dizziness which he has experienced in the past. She reports she does have BPPV and would like to start visit to be alert therapy which has worked for her in the past. Not interested in using meclizine at this time. (6) Impaired glucose metabolism: Code(s): R73.09 - Other abnormal glucose Plan: Have noted a elevated fasting blood sugar, will check an A1c at next lab draw. Advised on low carbohydrate diet. Orders: Orders Influenza [id number] Immunization 07/19/23 Z23 - Encounter for immunization PT Evaluation and Treatment 07/19/23 H81.13 - Benign paroxysmal vertigo, bilateral Lipid Panel 07/19/23 E78.2 - Mixed hyperlipidemia Comprehensive [place]. Panel Fast 07/19/23 E78.2 - Mixed hyperlipidemia Complete Blood Count no Diff 07/19/23 E78.2 - Mixed hyperlipidemia Hemoglobin A1c 07/19/23 R73.09 - Other abnormal glucose Medications: New lidocaine 5% leave on most painful area for up to 12 hrs 1 patch topical DAILY 30 days 30 ea 2RF M54.2 - Cervicalgia Refilled pravastatin 20 mg PO BEDTIME 90 tabs 1RF E78.2 - Mixed hyperlipidemia clonazepam 0.5 mg (1/2 x 1 mg) PO BID 30 days 30 tabs 0RF F41.1 - Generalized anxiety disorder Coding Level of Care Code Est Pt Level 4 (36773) Diagnoses Mixed hyperlipidemia E78.2 Hyperlipidemia type: mixed hyperlipidemia Class 3 severe obesity due to excess calories without serious comorbidity with body mass index (BMI) of 40.0 to 44.9 in adult E66.01; Z68.41 Body mass index: BMI 40.0-44.9 Obesity classification: adult class 3 (BMI >= 40) Obesity type: due to excess calories Serious obesity comorbidity presence: without serious comorbidity ABBY (generalized anxiety disorder) F41.1 Hand arthritis M19.049 Benign paroxysmal positional vertigo due to bilateral vestibular disorder H81.13 Laterality: bilateral Impaired glucose metabolism R73.09
[2023-07-19 08:32] VITALS: BP 124/86; PULSE 66; O2SAT 96; BMI 40.1
== END 2023-07-19 09:20 | disposition home or self-care (01) ==
PROVIDERS: Visit Provider Physician Assistant
DX: Z23 Encounter for immunization (principal)
CPT/HCPCS: 90471; 90686; 99214

== ENCOUNTER 2023-08-30 08:15 | Outpatient (REF) | payer OTHER, SELFPAY ==
--- NOTE | ~2023-08-30 | XR_ITS ---
EXAMINATION: XR CERVICAL SPINE CLINICAL INFORMATION: Cervicalgia. COMPARISON: None available. TECHNIQUE: Frontal, odontoid, lateral and swimmer's views of the cervical spine are obtained. FINDINGS: Vertebral body heights and alignment are normal. At C5-C6, there is moderate disc space narrowing, spondylosis. At C6-C7, there is mild disc space narrowing, spondylosis. The remaining disc spaces are well-maintained. No acute fracture or spondylolisthesis is seen. The posterior elements are intact. There is no prevertebral soft tissue swelling. The dens and C7-T1 interface are normal. XR/XR cervical spine 3V IMPRESSION: At C5-C6, there is moderate degenerative disc disease with accompanying spondylosis, and at C6-C7, there is mild degenerative disc disease with spondylosis.
== END 2023-08-30 08:16 | disposition home or self-care (01) ==
LOC: HO.XRAY 08:15
PROVIDERS: PCP Physician Assistant; Visit Provider Physician Assistant
DX: M54.2 Cervicalgia (principal)
CPT/HCPCS: 72040

== ENCOUNTER → 2023-09-20 08:54 | Outpatient (BNVA) | payer OTHER, SELFPAY | PROVIDERS: PCP Physician Assistant; Visit Provider Registered Nurse Emergency | DX: S46.819D Strain of other muscles, fascia and tendons at shoulder and upper arm level, unspecified arm, subsequent encounter (principal) | CPT/HCPCS: 99202 ==

== ENCOUNTER 2023-09-20 08:55 | Outpatient (AMB) | payer OTHER, SELFPAY ==
--- NOTE | 2023-09-20 09:05 | A.OFFVIS_ITS ---
Intake Vital Signs 09/20/23 09:09 Height 5 ft 2 in Weight 217 lb 4 oz BMI 39.7 BP 122/80 Blood Pressure Location Lt brachial Position Sitting Respiration 16 Pulse 68 Pulse Source Pulse Oximeter Pulse Oximetry (%) 96 Oxygen Delivery Method Room Air Intake Visit Reasons: Cervicalgia/phone # not working Allergies No Known Allergies [No Known Allergies*] Allergy (Verified 09/20/23 09:02) HPI HPI Comments History of Present Illness Details Lissa is a very pleasant 4-year-old female who presents the office today for evaluation and management of her subacute pain. Patient reports this pain started about a month ago after she participated in physical therapy for vertigo. She underwent vestibular rehab where they did ?manipulation of her head ? which left her with 3 days of debilitating neck pain. She states it has slowly been getting better, rated today as 2/10. She denies radiation of the pain down either arm. 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 The patient reports that she has been using heat, nonsteroidal anti-inflammatory medication every 12 hours and Tylenol every 12 hours with good affect. She is also using topical lidocaine patches which also provided her with moderate relief of her symptoms. She has not tried muscle relaxer, physical therapy, chiropractor, acupuncture, massage or injections. Patient had recent imaging of her cervical spine, results as per below. In terms of muscle damage condition is described as aching, tiring, exhausting. Pain is intermittent, worse in the evenings. Pain is negatively impacting patient's general activity, mood, normal work, recreational activities and sleep. Patient denies use of alcohol, tobacco or illicit substances. [facility] Medical History Colon adenomas Arthritis History of depression History of anxiety Hyperlipidemia Surgical History Hx of colonoscopy Hx of section Family History Paternal Grandmother FH: colon cancer Paternal Aunt FH: colon cancer Mother Colon polyps Social History Household Members: Spouse Housing: [facility] Alcohol intake: former Year quit: 25 Patient Tobacco Use Status: Never used Tobacco e-Cigarette/Vaping Use: Never Used Second Hand Smoke Exposure: No service: No Current occupational status: employed 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 Answers questions appropriately. Fully engaged in examination. Skin: warm, dry, intact HEENT: Normocephalic. Hearing intact. Cardiac: External chest normal in appearance. Respiratory: No cough, audible wheezing or stridor. Abdomen: without gross distension. MS: No obvious swelling or deformities. Cervical spine: Minimally tender to palpation across upper trapezius. Full range of motion. + Spurling. Neurological: Oriented to person, place, time and situation. Thought process intact. Psychiatric: Appropriate mood and affect. Good judgment and insight. Results Reviewed Results Reviewed: 08/30/23 XR/XR cervical spine 3V FINDINGS: Vertebral body heights and alignment are normal. At C5-C6, there is moderate disc space narrowing, spondylosis. At C6-C7, there is mild disc space narrowing, spondylosis. The remaining disc spaces are well-maintained. No acute fracture or spondylolisthesis is seen. The posterior elements are intact. There is no prevertebral soft tissue swelling. The dens and C7-T1 interface are normal. IMPRESSION: At C5-C6, there is moderate degenerative disc disease with accompanying spondylosis, and at C6-C7, there is mild degenerative disc disease with spondylosis. Assessment & Plan Assessment & Plan (1) Trapezius muscle strain: Code(s): S46.819A - Strain of other muscles, fascia and tendons at shoulder and upper arm level, unspecified arm, initial encounter Plan Lissa is a very pleasant 4-year-old female presents the office today for evaluation management of her acute neck pain. Order placed for PT eval and treat. Naproxen 375 mg p.o. twice daily as needed Baclofen 5 mg p.o. b.i.d. as needed for muscle spasm, patient instructed on cautions for use. Follow-up in the office after physical therapy, sooner if needed. Orders: Orders PT Evaluation and Treatment Today S46.810Z - Strain of other muscles, fascia and tendons at shoulder and upper arm level, unspecified arm, initial encounter Medications: New baclofen 5 mg PO BID 30 tabs 0RF naproxen 375 mg PO BID 60 tabs 1RF Coding Level of Care Code New Pt Level 3 (54859) Diagnoses Trapezius muscle strain S46.817O
[2023-09-20 09:09] VITALS: BP 122/80; PULSE 68; RESP 16; O2SAT 96; BMI 39.7
== END 2023-09-20 09:51 | disposition home or self-care (01) ==
PROVIDERS: PCP Physician Assistant; Visit Provider Registered Nurse Emergency
DX: S46.819A Strain of other muscles, fascia and tendons at shoulder and upper arm level, unspecified arm, initial encounter (principal)
CPT/HCPCS: 99203

== ENCOUNTER 2023-09-23 10:52 | Outpatient (AMB) | payer OTHER, SELFPAY ==
--- NOTE | 2023-09-23 10:55 | A.OFFPC_ITS ---
Vital Signs 09/23/23 10:56 Height 5 ft 2 in Weight 220 lb BMI 40.2 BP 118/86 Blood Pressure Location Lt brachial Position Sitting Pulse 58 Pulse Source Pulse Oximeter Pulse Oximetry (%) 98 Oxygen Delivery Method Room Air Intake Visit Reasons: Herniated disc pain Intake Note: Patient is here to follow up on herniated disc Dolphin Researcher Required: No Allergies No Known Allergies [No Known Allergies*] Allergy (Verified 09/23/23 11:04) Medication List - Last Reconciled 09/23/23 by PEDRO Rain acetaminophen (Tylenol) 650 mg PO baclofen 5 mg PO BID clonazepam 0.5 mg (1/2 x 1 mg) PO BID 30 days lidocaine 5% 1 patch topical DAILY 30 days naproxen 375 mg PO BID pravastatin 20 mg PO BEDTIME Tobacco use date assessed: 09/23/23 Dental Screening Dental Screen Date: 09/23/23 HPI Herniated disc pain HPI Details Patient is a 58-year-old female who presents today to follow-up on neck pain. Patient of TERE Bal. patient reports that couple months ago she went to physical therapy for vertigo and since then she started with neck pain, currently denies any neck pain, followed by pain management will be starting physical therapy. Reports taking naproxen or Tylenol with improvement. Reports she needs to lose some weight, not interested in weight management referral at this time, questioning possible injection such as Ozempic/Wegovy - encouraged patient to complete her blood work and then will possibly start injection. 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 How often do you have a drink containing alcohol?: Never Total Score: 0 Score Reviewed/Action Taken: No ABBY-7 AMB Questionnaire ABBY-7 Date ABBY - 7 assessed: 01/18/23 Source: Developed by Drs. Esa Cool, Verona Weems, Vince Esquivel and colleagues, with an educational emmy from [employer]. Review of Systems Const Denies body aches, Denies chills, Denies fever(s) and Denies headache(s) ENT Denies dizziness, Denies otalgia, Denies headache(s), Denies nasal discharge, Denies sinus pain and Denies sore throat Card Denies chest pain, Denies edema, Denies lightheadedness and Denies dyspnea Resp Denies cough, Denies dyspnea and Denies wheezing GI Denies abdominal pain Musc Details: Numbness and tingling in hands-chronic Denies myalgias Skin/Breast Denies rash Neuro Denies dizziness and Denies headache(s) Aller/Immun Denies wheezing Physical exam (Primary Care) Vital Signs: Last Vital Signs Pulse 58 09/23/23 10:56 BP 118/86 09/23/23 10:56 Pulse Ox 98 09/23/23 10:56 Oxygen Delivery Method Room Air 09/23/23 10:56 BMI result Body Mass Index 40.2 Tobacco/Smoking Status: Tobacco use Status Tobacco use date assessed 09/23/23 09/23/23 11:01 Patient Tobacco Use Status Never used Tobacco 09/23/23 11:01 e-Cigarette/Vaping Use Never Used 09/23/23 11:01 Thrive Assessment: Date of Thrive Assessment Date Thrive assessed 01/18/23 09/23/23 11:01 Const General: cooperative and no acute distress Orientation/consciousness: patient oriented x3 HENMT Head: Yes normocephalic and Yes atraumatic Throat: Yes posterior oropharynx normal Eyes General: appearance normal, both eyes and all related structures Neck Neck: Yes normal visual inspection and Yes full ROM Resp Effort & Inspection: normal respiratory effort and able to speak in complete sentences Auscultation: clear to auscultation bilaterally, no crackles, no rales, no rhonchi and no wheezes Cardio Rate: regular rate Rhythm: regular rhythm Heart sounds: S1 normal heart sound present and S2 normal heart sound present GI Auscultation: normal bowel sounds Back/Spine/Pelvis Cervical Spine: cervical ROM normal, No cervical muscular tenderness and No Cervical spine tenderness Skin General skin exam: no rashes or lesions noted Neuro General: patient oriented x3 Gait exam (Neuro): Normal gait present Extrem General: Yes full ROM and No edema Assessment and Plan Assessment & Plan (1) Cervical spine pain: Code(s): M54.2 - Cervicalgia Plan: Patient denies any neck pain currently, reports that pain is improving Will be starting physical therapy Continue to follow-up with [place] pain management Continue naproxen, baclofen, Tylenol (2) Obese: Code(s): E66.9 - Obesity, unspecified Qualifiers: Obesity type: due to excess calories Obesity classification: adult class 3 (BMI >= 40) Serious obesity comorbidity presence: without serious comorbidity Body mass index: BMI 40.0-44.9 Qualified Code(s): E66.01 - Morbid (severe) obesity due to excess calories; Z68.41 - Body mass index [BMI] 40.0- 44.9, adult Plan: Reports she needs to lose some weight, not interested in weight management referral at this time, questioning possible injection such as Ozempic/Wegovy - encouraged patient to complete her blood work and then will possibly start injection. Continue healthy food choices and exercise as tolerated Medications: Refilled lidocaine 5% leave on most painful area for up to 12 hrs 1 patch topical DAILY 30 days 30 ea 2RF M54.2 - Cervicalgia pravastatin 20 mg PO BEDTIME 90 tabs 1RF E78.2 - Mixed hyperlipidemia Coding Level of Care Code Est Pt Level 3 (54390) Diagnoses Cervical spine pain M54.2 Class 3 severe obesity due to excess calories without serious comorbidity with body mass index (BMI) of 40.0 to 44.9 in adult E66.01; Z68.41 Obesity type: due to excess calories Obesity classification: adult class 3 (BMI >= 40) Serious obesity comorbidity presence: without serious comorbidity Body mass index: BMI 40.0-44.9
[2023-09-23 10:56] VITALS: BP 118/86; PULSE 58; O2SAT 98; BMI 40.2
== END 2023-09-23 11:55 | disposition home or self-care (01) ==
PROVIDERS: PCP Physician Assistant; Visit Provider Nurse Practitioner Family
DX: M54.2 Cervicalgia (principal); E66.01 Morbid (severe) obesity due to excess calories; Z68.41 Body mass index [BMI] 40.0-44.9, adult
CPT/HCPCS: 99213

== ENCOUNTER 2024-02-03 07:19 | Outpatient (REF) | payer OTHER, SELFPAY ==
[2024-02-03 07:43] LABS: Hematocrit 42.2 % (37.0-47.0); Hemoglobin 14.1 g/dl (12.0-16.0); Mean Corpuscular HGB Conc 33.4 g/dl (31.0-35.0); Mean Corpuscular Hemoglobin 30.4 pg (27.0-33.0); Mean Corpuscular Volume 90.9 fL (80.0-98.0); Mean Platelet Volume 9.7 fL (9.4-12.3); Platelet Count 350 X10*3/uL (160-400); Red Blood Count 4.64 X10*6/uL (4.20-5.50); White Blood Count 6.8 X10*3/uL (4.8-10.8)
[2024-02-03 07:57] LABS: Estimated Average Glucose 117 mg/dL; Hemoglobin A1c % 5.7 % (<6.0)
[2024-02-03 08:29] LABS: Alanine Aminotransferase 19 U/L (0-31); Alkaline Phosphatase 87 U/L (39-117); Anion Gap 12 (12-20); Aspartate Amino Transferase 14 U/L (5-31); Bilirubin Total 0.5 mg/dL (0.0-1.0); Blood Urea Nitrogen 11 mg/dL (9-16); Calcium 9.2 mg/dL (8.4-10.2); Carbon Dioxide 25 mmol/L (22-29); Chloride 108 mmol/L (96-108); Cholesterol 241 mg/dL (<200); Estimated Glomerular Filt Rate > 60; Glucose Fasting 110 mg/dL (60-99); HDL Cholesterol 44 mg/dL (>40); LDL Cholesterol Calculated 161 mg/dL (<100); Sodium 141 mmol/L (135-145); Total Protein 6.7 g/dL (6.5-8.0); Triglycerides 183 mg/dL (<150)
== END 2024-02-03 07:20 | disposition home or self-care (01) ==
LOC: HO.LAB 07:19
PROVIDERS: PCP Physician Assistant; Visit Provider Physician Assistant
DX: E78.2 Mixed hyperlipidemia (principal); R73.09 Other abnormal glucose
CPT/HCPCS: 36415; 80053; 80061; 83036; 85027

== ENCOUNTER 2024-02-07 07:52 | Outpatient (AMB) | payer OTHER, SELFPAY ==
[2024-02-07 08:02] VITALS: BP 124/78; PULSE 56; O2SAT 97; BMI 40.2
--- NOTE | 2024-02-07 08:02 | MHC.PC.OV ---
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 Tallow Pumper Required: No Accompanied by: Spouse Allergies No Known Allergies [No Known Allergies*] Allergy (Verified 02/07/24 08:13) Medication List - Last Reconciled 02/07/24 by Kunal Bal PA-C acetaminophen (Tylenol) 650 mg PO clonazepam 0.5 mg (1/2 x 1 mg) PO BID 30 days lidocaine 5% 1 patch topical DAILY 30 days naproxen 375 mg PO BID pravastatin 20 mg PO BEDTIME Tobacco use date assessed: 02/07/24 Dental Screening Dental Screen Date: 02/07/24 Did you have a dental visit in the last 12 months?: Yes Did you have a dental problem in the last 6 months where you did not have access to dental care?: No Was dental information given to patient?: Patient has dentist HPI PE HPI Details Lynette is a 58-year-old female here today for a visit.? Patient has a past medical history significant for hyperlipidemia, generalized anxiety disorder.? Concerns--> continues to have worsening osteoarthritic pain. She continues with daily naproxen which she is unsure if his has been helping her. Has set up a appointment with Rheumatology. Hand osteoarthritis: Followed by [facility] and has been getting injections in her hands. .. Generalized anxiety disorder:? Patient has been under lot of stress due to family issues and her mom's failing health.? She does use clonazepam on nearly daily basis for her anxiety and sleep. .. Hyperlipidemia:? Patient's most recent fasting lipids continued elevated total cholesterol and LDL though much improved since starting statin. She is only fairly adherent to use of statin therapy daily. ? Of note does have a family history of coronary artery disease and peripheral artery disease. . Obese: Patient does understand her BMI is well over 30 and will work on being more physically active and adapting to better eating habits to reduce her weight colonoscopy: Done 01/2022- tubular adenoma polyps found needed repeat in 5 years. [facility]: DOes see a [facility] in [place] ( Dr Velasco) Mammo: Followed by [facility] and gets mammo Vaccine : UTD with COVID, TDap and FLu, needs Shingrex Laboratory Tests 07/14/23 02/03/24 07:28 07:30 RBC 4.64 Fasting Glucose 118 H 110 H Hemoglobin A1c % 5.7 Triglycerides 183 H Cholesterol 250 H 241 H LDL Cholesterol, C alc 173 H 161 H PFSH Medical History Colon adenomas Arthritis History of depression History of anxiety Hyperlipidemia Surgical History Hx of colonoscopy Hx of section Family History Paternal Grandmother FH: colon cancer Paternal Aunt FH: colon cancer Mother Colon polyps Social History Household Members: Spouse Housing: Condominium Alcohol intake: former Year quit: 25 Patient Tobacco Use Status: Never used Tobacco e-Cigarette/Vaping Use: Never Used Second Hand Smoke Exposure: No service: No Current occupational status: employed 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 1. Little interest or pleasure in doing things: not at all 2. Feeling down, depressed, or hopeless: not at all 3. Trouble falling or staying asleep, or sleeping too much: not at all 4. Feeling tired or having little energy: not at all 5. Poor appetite or overeating: not at all 6. Feeling bad about yourself - or that you are a failure or have let yourself or your family down: not at all 7. Trouble concentrating on things, such as reading the newspaper or watching television: not at all 8. Moving or speaking so slowly that other people could have noticed. Or the opposite - being so fidgety or restless that you have been moving around a lot more than usual: not at all 9. Thoughts that you would be better off or of hurting yourself in some way: not at all Total score: 0 Depression Screening Interpretation: Negative Depression Screening Done: Yes 77334 - PHQ-9 Billing: Yes Source: Developed by Drs. Esa Cool, Verona Weems, Vince Esquivel and colleagues, with an educational emmy from [employer]. Thrive Questionnaire Date Thrive assessed: 02/07/24 I am a: Patient What is your living situation today?: I have a steady place to live Within the past 12 months, did the food you bought not last and you didn't have the money to get more?: Never true Within the past 12 months, did you worry whether your food would run out before you got money to buy more?: Never true Do you have trouble paying for medicines?: No Do you have trouble getting transportation to medical appointments?: No Do you have trouble paying your heating and electricity bill?: No Do you have trouble taking care of your child, family member or friend?: No Do you have trouble with day-to-day activities such as bathing, preparing meals, shopping, managing finances, etc.?: No Are you currently unemployed and looking for a job?: No Are you interested in more education?: No Please select the resources that you would like help with: None Currently or been in a relationship where the following occur: no concerns reported THRIVE Score: 0 AUDIT C Alcohol Use Questionnaire (AUDIT-C) 1. How often do you have a drink containing alcohol?: Never Total Score: 0 ABBY-7 AMB Questionnaire ABBY-7 Date ABBY - 7 assessed: 02/07/24 Feeling nervous, anxious, or on edge: 1 = Several days Not being able to stop or control worryin = Not at all Worrying too much about different things: 0 = Not at all Trouble relaxin = Several days Being so restless that it is hard to sit still: 0 = Not at all Becoming easily annoyed or irritable: 0 = Not at all Feeling afraid as if something awful might happen: 0 = Not at all Total ABBY-7 score (0-4 normal; 5-9 mild; 10-14 moderate; 15-21 severe): 2 Source: Developed by Drs. Esa Cool, Vince Moreno and colleagues, with an educational emmy from [employer]. ABBY-7 Assessment Billing ABBY-7 Assessment Tool: ABBY-7 Assessment 41385 Review of Systems Const Denies body aches, Denies chills, Denies excessive sweating, Denies fatigue, Denies fever(s) and Denies headache(s) Eyes Denies blurry vision ENT Denies dysphagia, Denies vertigo, Denies dizziness, Denies headache(s), Denies hearing loss and Denies tinnitus Card Denies chest pain, Denies chest pain with activity, Denies syncope, Denies irregular heart rhythm and Denies dyspnea Resp Denies chest congestion, Denies cough, Denies hemoptysis, Denies dyspnea and Denies wheezing GI Denies abdominal pain, Denies melena, Denies hematochezia, Denies coffee ground emesis, Denies dysphagia, Denies diarrhea, Denies nausea and Denies vomiting Denies urinary frequency, Denies dysuria, Denies urinary hesitancy and Denies urinary urgency Musc Denies arthralgias, Denies limited range of motion, Denies muscle cramps and Denies muscle weakness Skin/Breast Denies rash and Denies skin ulcer Neuro Denies Abnormal speech present, Denies confusion, Denies vertigo, Denies dizziness, Denies syncope, Denies headache(s), Denies memory loss and Denies seizure-like activity Psych Denies anxiety, Denies confusion, Denies depression, Denies memory loss, Denies panic attacks and Denies paranoia Endo Denies excessive sweating, Denies fatigue, Denies flushing, Denies polydipsia and Denies polyuria Aller/Immun Denies wheezing Physical exam (Primary Care) Vital Signs: Last Vital Signs Pulse 56 02/07/24 08:02 BP 124/78 02/07/24 08:02 Pulse Ox 97 02/07/24 08:02 Oxygen Delivery Method Room Air 02/07/24 08:02 BMI result Body Mass Index 40.2 Tobacco/Smoking Status: Tobacco use Status Tobacco use date assessed 02/07/24 02/07/24 08:12 Patient Tobacco Use Status Never used Tobacco 02/07/24 08:03 e-Cigarette/Vaping Use Never Used 02/07/24 08:03 PHQ-9: PHQ-9 Score PHQ-9: Total score 0 02/07/24 08:12 Depression Screening Interpretation: Negative Thrive Assessment: Date of Thrive Assessment Date Thrive assessed 02/07/24 02/07/24 08:12 Currently or been in a relationship where the following occur: no concerns reported Const General: cooperative, comfortable, no acute distress, alert and awake; No confusion Orientation/consciousness: oriented to person, oriented to place, patient oriented x3 and No confusion HENNJ Head: Yes normocephalic Ears: external ears normal and TM's normal bilaterally Face and sinus: No sinus tenderness Mouth: Normal oral and palatal mucosa present and tongue normal Teeth and gingiva: dentition normal and gingiva normal Throat: Yes posterior oropharynx normal, Yes tonsils normal and Yes uvula midline Eyes Conjunctivae: conjunctivae normal Sclerae: sclerae normal Pupils: Equal, round and reactive pupils present EOM: EOMs intact bilaterally Direct Ophthalmoscopy: No no photophobia Neck Neck: Yes no lymphadenopathy, No tender and Yes no JVD Thyroid: Thyroid normal Carotids: no bruits Chest Chest palpation & inspection: no tenderness Resp Effort & Inspection: normal respiratory effort, no audible wheezes, not labored and no stridor Auscultation: no crackles, no rales, no rhonchi and no wheezes Cardio Jugular venous distension: no JVD Rate: regular rate, not bradycardic and not tachycardic Rhythm: regular rhythm Bruits: no carotid bruits Peripheral pulses: Peripheral pulses 2+ throughout GI Inspection: Yes normal to inspection, No abdominal wall ecchymosis and No visible herniation Palpation (GI): Soft to palpation, nontender, no guarding, not rigid and No hepatosplenomegaly present Auscultation: normoactive bowel sounds General: Yes no CVA tenderness Back/Spine/Pelvis Back: no CVA tenderness and No back tenderness Cervical Spine: cervical ROM normal Thoracic/Lumbar Spine: thoracic and lumbar spine normal to inspection, straight leg raise negative bilaterally, No thoraco-lumbar ROM limited and No lumbar spinal tenderness Skin Lesions: no lesions Rashes: no rashes Wounds: no wounds Neuro General: oriented to person, oriented to place, patient oriented x3, CN's II-XI intact bilaterally and No confusion Cranial nerves: Yes Equal, round and reactive pupils present and Yes Normal accommodation reflex present Cognition (Neuro): normal cognition Speech: No Abnormal speech present Gait exam (Neuro): Normal gait present Motor exam (neuro): 5/5 motor strength present throughout Extrem Right upper extremity: full ROM; no cyanosis Left upper extremity: full ROM; no cyanosis Hand/finger images: 1. NOTED SEVERAL ARTHRITIC NODULES IN THE PIP JOINTS Right lower extremity: no edema Left lower extremity: no edema Psych Appearance: grossly normal Mental Status: mental status grossly normal Affect: normal affect Attitude: cooperative Thought process: Normal thought process present Assessment and Plan Assessment & Plan (1) Annual physical exam: Code(s): Z00.00 - Encounter for general adult medical examination without abnormal findings (2) HLD (hyperlipidemia): Code(s): E78.5 - Hyperlipidemia, unspecified Qualifiers: Hyperlipidemia type: mixed hyperlipidemia Qualified Code(s): E78.2 - Mixed hyperlipidemia Plan: Patient lipid panel seems to be trending in the right direction, still has high cholesterol. She is somewhat compliant with use of her pravastatin and promises to take on a daily basis.. Does have a family history of coronary artery and PDA D disease. Goal LDL is to remain below 160 (3) Obese: Code(s): E66.9 - Obesity, unspecified Qualifiers: Obesity type: due to excess calories Obesity classification: adult class 3 (BMI >= 40) Serious obesity comorbidity presence: without serious comorbidity Body mass index: BMI 40.0-44.9 Qualified Code(s): E66.01 - Morbid (severe) obesity due to excess calories; Z68.41 - Body mass index [BMI] 40.0-44.9, adult Plan: Patient does understand her BMI is over 30 will work on being more physically active and adapting to better eating habits to reduce her weight (4) ABBY (generalized anxiety disorder): Code(s): F41.1 - Generalized anxiety disorder Plan: Patient does use clonazepam on a p.r.n. basis for sleep and anxiety. She does have a lot of family stress causing worsening anxiety. (5) Hand arthritis: Code(s): M19.049 - Primary osteoarthritis, unspecified hand Plan: Patient does have bilateral hand wrist arthritis which she attributes to a genetic reason. 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 She has seen hand surgeon in getting cortisone injections to help reduce her inflammation and pain in her hands. She is upcoming appointment with rheumatology for further evaluation. She about kidney disease using naproxen on a daily basis (6) Impaired glucose metabolism: Code(s): R73.09 - Other abnormal glucose Plan: Have noted a elevated fasting blood sugar, will check an A1c at next lab draw. Advised on low carbohydrate diet. Orders: Orders Hemoglobin A1c Today R73.09 - Other abnormal glucose Comprehensive [place]. Panel Fast Today Z13.1 - Encounter for screening for diabetes mellitus Lipid Panel Today E78.2 - Mixed hyperlipidemia Complete Blood Count no Diff Today E78.2 - Mixed hyperlipidemia Medications: Refilled lidocaine 5% leave on most painful area for up to 12 hrs 1 patch topical DAILY 30 days 30 ea 3RF M54.2 - Cervicalgia Patient Instructions: Goal: LDL below 160 Barriers: Adherence to healthy eating habits and physical activity. Coding Level of Care Code Est Pt Prev Care 40-64y(30089) Diagnoses Annual physical exam Z00.00 Mixed hyperlipidemia E78.2 Hyperlipidemia type: mixed hyperlipidemia Class 3 severe obesity due to excess calories without serious comorbidity with body mass index (BMI) of 40.0 to 44.9 in adult E66.01; Z68.41 Obesity type: due to excess calories Obesity classification: adult class 3 (BMI >= 40) Serious obesity comorbidity presence: without serious comorbidity Body mass index: BMI 40.0-44.9 ABBY (generalized anxiety disorder) F41.1 Hand arthritis M19.049 Impaired glucose metabolism R73.09 Additional Codes ABBY-7 Assessment Billing - ABBY-7 Assessment Tool: ABBY-7 Assessment 59618 ([id number])
== END 2024-02-07 08:52 | disposition home or self-care (01) ==
PROVIDERS: PCP Physician Assistant; Visit Provider Physician Assistant
DX: Z00.00 Encounter for general adult medical examination without abnormal findings (principal); E66.01 Morbid (severe) obesity due to excess calories; Z68.41 Body mass index [BMI] 40.0-44.9, adult; M19.041 Primary osteoarthritis, right hand; M19.042 Primary osteoarthritis, left hand; E78.2 Mixed hyperlipidemia; F41.1 Generalized anxiety disorder; R73.09 Other abnormal glucose
CPT/HCPCS: 99396

== ENCOUNTER 2024-02-21 08:19 | Outpatient (AMB) | payer OTHER, SELFPAY ==
--- NOTE | 2024-02-21 08:49 | MHC.OFFVIS ---
Vital Signs 02/21/24 08:50 Height 5 ft 2 in Weight 224 lb 13.944 oz BMI 41.1 BP 126/74 Blood Pressure Location Rt brachial Position Sitting Pulse 73 Pulse Source Pulse Oximeter Pulse Oximetry (%) 98 Oxygen Delivery Method Room Air Handedness Right Intake Visit Reasons: Joint Pain/CM Intake Note: New pt presents today for joint pain consult, internally referred by PCP Kunal Bal. States she is always in pain, especially after long periods of walking. 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 Her pain is very debilitating and more intense at night , reports weakness, unable to lift arms due to shoulder pain. Reports lots of stressful events in her life since October. Has been diagnosed with DJD; has tried naproxen, tylenol and cortisone injection in wrist. Manager Payer Required: No Accompanied by: Self / Same As Patient Allergies No Known Allergies [No Known Allergies*] Allergy (Verified 02/21/24 09:06) Medication List - Last Reconciled 02/21/24 by Rashida Harvey MD acetaminophen (Tylenol) 650 mg PO clonazepam 0.5 mg (1/2 x 1 mg) PO BID 30 days lidocaine 5% 1 patch topical DAILY 30 days naproxen 375 mg PO BID pravastatin 20 mg PO BEDTIME HPI Comments Details: This is a 58-year-old female who presents for evaluation of arthritis. Stated that she has had arthritis for at least 10 years now but over the last 6 months it has become progressively worse. She has also been under plenty of stress in her personal life. 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 Usually using her right hand. She was evaluated by Dr. Walton for her right hand pain and received steroid injection at the base of the right thumb which gave about 3 months relief. She also states that she has been having right foot pain, worse with walking. She also has known degenerative disc disease of her cervical spine and gets intermittent radiating pain from her neck down into her hand. She also has bilateral intermittent knee pain. She has been taking naproxen 375 mg Twice daily daily for the last 6 months [facility] Medical History Colon adenomas Arthritis History of depression History of anxiety Hyperlipidemia Surgical History Hx of colonoscopy Hx of section Family History Paternal Grandmother FH: colon cancer Paternal Aunt FH: colon cancer Mother Colon polyps Father Vascular dementia Social History Household Members: Spouse Housing: Condominium Alcohol intake: former Year quit: 25 Patient Tobacco Use Status: Never used Tobacco e-Cigarette/Vaping Use: Never Used Second Hand Smoke Exposure: No service: No Current occupational status: employed 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 Current occupational exposures/hazards: No Cognitive needs: No Hearing needs: No Vision needs: Yes (glasses) Female Reproductive History Menstrual Total pregnancies: 1 Full term: 1 Review of Systems Const Reports fatigue ENT Reports neck pain Musc Reports arthralgias, Reports limited range of motion, Reports neck pain, Reports radiating pain into limb and Reports stiffness Psych Reports anxiety Endo Reports fatigue Physical Exam Vital Signs: Last Vital Signs Pulse 73 02/21/24 08:50 BP 126/74 02/21/24 08:50 Pulse Ox 98 02/21/24 08:50 Oxygen Delivery Method Room Air 02/21/24 08:50 BMI result Body Mass Index 41.1 Const General: cooperative, healthy appearing and comfortable Nutritional Appearance: obese morbidly obese Orientation/consciousness: patient oriented x3 Limitations: no limitations HEENT Head: Yes normocephalic and Yes atraumatic Resp Effort & Inspection: normal respiratory effort and able to speak in complete sentences Neuro General: patient oriented x3 Extrem Other: Significant osteoarthritic changes of both hands with prominent Heberden's and Janny's nodes that are tender to palpation Squaring at 1st CMC joints bilaterally Pain at the base of the right thumb as well as the right 1st MCP and IP joint Right wrist discomfort to palpation and pain with full flexion Positive empty can test on the right Significant bilateral bunions that are tender to palpation Normal nailfold capillaroscopy Assessment & Plan Assessment & Plan (1) Osteoarthritis of hands, bilateral: Code(s): M19.041 - Primary osteoarthritis, right hand; M19.042 - Primary osteoarthritis, left hand Category: Medical Qualifiers: Osteoarthritis type: primary Qualified Code(s): M19.041 - Primary osteoarthritis, right hand; M19.042 - Primary osteoarthritis, left hand Plan: This is a 58-year-old female who presents for evaluation of arthritis. On exam she has generalized osteoarthritis especially of her neck, hands, feet. There is some suspicion of right rotator cuff tendinopathy on exam. Discussed nature of osteoarthritis and different management strategies. Check bilateral shoulder x-rays Will refer patient to PT for her degenerative arthritis of her neck as well as bilateral rotator cuff tendinopathy. Referred patient to OT for both hands. Patient has been taking naproxen 375 mg Twice daily for the last 6 months. I suggested trying to limit naproxen and using more Tylenol, apply Voltaren gel to painful joints. Consider turmeric. Patient also stated that she will try an anti-inflammatory diet Consider evaluation by hr specialist Follow-up with PCP. Follow-up with me plawrence. (2) Degenerative cervical disc: Code(s): M50.30 - Other cervical disc degeneration, unspecified cervical region Category: Medical Plan: Referred to PT Orders: Orders PT Evaluation and Treatment Today M12.811 - Other specific arthropathies, not elsewhere classified, right shoulder, M12.812 - Other specific arthropathies, not elsewhere classified, left shoulder, M50.30 - Other cervical disc degeneration, unspecified cervical region OT Evaluation and Treatment Today M19.041 - Primary osteoarthritis, right hand, M19.042 - Primary osteoarthritis, left hand, M25.50 - Pain in unspecified joint XR shoulder LT min 2V Today M25.50 - Pain in unspecified joint XR shoulder RT min 2V Today M25.50 - Pain in unspecified joint Coding Level of Care Code New Pt Level 3 (95732) Diagnoses Primary osteoarthritis of both hands M19.041; M19.042 Osteoarthritis type: primary Degenerative cervical disc M50.30
[2024-02-21 08:50] VITALS: BP 126/74; PULSE 73; O2SAT 98; BMI 41.1
== END 2024-02-21 09:48 | disposition home or self-care (01) ==
PROVIDERS: PCP Physician Assistant; Visit Provider Student in an Organized Health Care Education/Training Program
DX: M19.041 Primary osteoarthritis, right hand (principal); M19.042 Primary osteoarthritis, left hand; M50.30 Other cervical disc degeneration, unspecified cervical region
CPT/HCPCS: 99203

== ENCOUNTER → 2024-02-21 08:19 | Outpatient (BNVA) | payer OTHER, SELFPAY | PROVIDERS: PCP Physician Assistant; Visit Provider Student in an Organized Health Care Education/Training Program | DX: M19.041 Primary osteoarthritis, right hand (principal); M19.042 Primary osteoarthritis, left hand; M50.30 Other cervical disc degeneration, unspecified cervical region; Z79.899 Other long term (current) drug therapy | CPT/HCPCS: 99202 ==

== ENCOUNTER 2024-05-07 08:43 | Outpatient (REF) | payer OTHER, SELFPAY ==
--- NOTE | ~2024-05-07 | XR_ITS ---
EXAMINATION: XR SHOULDER, RIGHT XR SHOULDER, LEFT CLINICAL INFORMATION: Chronic bilateral shoulder pain. COMPARISON: None available. TECHNIQUE: 4 views of each shoulder. FINDINGS: RIGHT SHOULDER: There is cephalad migration at the humeral head with marked narrowing of the subacromial space and a large anterior subacromial spur, consistent with chronic subacromial impingement and a chronic rotator cuff tear. Bones are osteopenic. Moderate glenohumeral osteoarthritis with joint space narrowing and marginal osteophytes. Moderate acromioclavicular osteoarthritis. A round radiodensity overlying the humeral head on the AP view likely corresponds to an overlying button. Calcific tendinitis cannot be excluded. LEFT SHOULDER: Anterior subacromial spurs. Mild glenohumeral osteoarthritis with joint space narrowing and marginal osteophytes. [id number] acromioclavicular osteoarthritis. Bones are osteopenic. XR/XR shoulder RT min 2V IMPRESSION: 1. Moderate right and mild left glenohumeral osteoarthritis. 2. Wuhrfeuy-cf-[id number] bilateral acromioclavicular osteoarthritis. 3. Chronic right rotator cuff tear with cephalad migration of the humeral head and a large anterior subacromial spur. 4. Anterior subacromial spurs at the left shoulder.
--- NOTE | ~2024-05-07 | XR_ITS ---
EXAMINATION: XR SHOULDER, RIGHT XR SHOULDER, LEFT CLINICAL INFORMATION: Chronic bilateral shoulder pain. COMPARISON: None available. TECHNIQUE: 4 views of each shoulder. FINDINGS: RIGHT SHOULDER: There is cephalad migration at the humeral head with marked narrowing of the subacromial space and a large anterior subacromial spur, consistent with chronic subacromial impingement and a chronic rotator cuff tear. Bones are osteopenic. Moderate glenohumeral osteoarthritis with joint space narrowing and marginal osteophytes. Moderate acromioclavicular osteoarthritis. A round radiodensity overlying the humeral head on the AP view likely corresponds to an overlying button. Calcific tendinitis cannot be excluded. LEFT SHOULDER: Anterior subacromial spurs. Mild glenohumeral osteoarthritis with joint space narrowing and marginal osteophytes. [id number] acromioclavicular osteoarthritis. Bones are osteopenic. XR/XR shoulder LT min 2V IMPRESSION: 1. Moderate right and mild left glenohumeral osteoarthritis. 2. Gxsypkjp-yz-fmkere bilateral acromioclavicular osteoarthritis. 3. Chronic right rotator cuff tear with cephalad migration of the humeral head and a large anterior subacromial spur. 4. Anterior subacromial spurs at the left shoulder.
== END 2024-05-07 08:44 | disposition home or self-care (01) ==
LOC: HO.XRAY 08:43
PROVIDERS: PCP Physician Assistant; Visit Provider Student in an Organized Health Care Education/Training Program
DX: M25.511 Pain in right shoulder (principal); M25.512 Pain in left shoulder
CPT/HCPCS: 73030

== ENCOUNTER 2024-05-29 08:00 | Outpatient (RCR) | payer OTHER, SELFPAY ==
--- NOTE | 2024-05-16 12:54 | MHC.PT.EP ---
[facility] [place] [facility] [place] [facility] [place] Office [address] [phone] F: [phone] F: [phone] F: [phone] F: [phone] Physical Therapy Plan of Care Date of Evaluation: 05/16/24 Date of Surgery: Diagnosis: BPPV Assessment: Pt is a 59yo female referred to PT for BPPV. Candi Hallpike + on L, treated with Lisandro maneuver x 2. PT exam reveals impairments with VOR and convergence ability. Pt would benefit from continued skilled PT to address BPPV with canalith repositioning, VOR up-training, and oculomotor exercises. Pt in agreement with POC and is motivated to participate. Frequency and Duration: The patient will be seen 2x/week, x 2 weeks Short Term Goals: 1. Pt will be I with seated VOR and convergence exercises in 2 weeks, performing daily. 2. - Candi Hallpike to the L. Questioned Documents Examiner Goals: 1. In 4 weeks, patient will improve 25 points on the DHI, indicating significant improvement in vertigo symptoms and improved functional mobility. 2. Pt I with standing VOR exercises and able to converge to 4cm without dizziness. Treatment Plan: Modalities to reduce pain, spasms and effusion. Manual therapy to restore motion and function. Therapeutic exercise to improve strength and flexibility. Neuromuscular re-education for posture and balance. Therapeutic activities to return to functional activities of daily living. Electronically signed by: Pamela Prarish PT, DPT Please sign and return to therapist. Thank you for your referral.
--- NOTE | 2024-08-15 12:59 | MHC.PT.DC ---
[facility] [place] Office [place] Office [place] Office [address] Bakari Dunne [address] [phone] F: [phone] F: [phone] F: [phone] F: [phone] Physical Therapy Discharge Report Diagnosis: BPPV Date of Surgery: Date of Evaluation: 05/16/24 Date of Discharge: 08/15/24 Treatments to Date: 6 Cancellations to Date: No Shows to Date: Discharge Status: Achieved Goals Improved Function Independent with HEP Discharge Summary: Lissa has not had any symptoms of vertigo in over a month. She is therefore being d/c from PT. Electronically signed by: Elina Cabrera PT DPT Please sign and return to therapist. Thank you for your referral.
== END 2024-08-15 12:59 | disposition home or self-care (01) ==
LOC: HO.PT 08:00
PROVIDERS: PCP Physician Assistant; Visit Provider Physician Assistant
DX: H81.13 Benign paroxysmal vertigo, bilateral (principal)
CPT/HCPCS: 95992; 97110; 97112; 97161; 97535

== ENCOUNTER 2024-08-07 08:05 | Outpatient (REF) | payer OTHER, SELFPAY ==
[2024-08-07 09:28] LABS: Hematocrit 40.9 % (37.0-47.0); Hemoglobin 13.8 g/dl (12.0-16.0); Mean Corpuscular HGB Conc 33.7 g/dl (31.0-35.0); Mean Corpuscular Hemoglobin 30.8 pg (27.0-33.0); Mean Corpuscular Volume 91.3 fL (80.0-98.0); Mean Platelet Volume 9.9 fL (9.4-12.3); Platelet Count 357 X10*3/uL (160-400); Red Blood Count 4.48 X10*6/uL (4.20-5.50); Red Cell Distribution Width 11.9 % (11.0-16.0); White Blood Count 6.8 X10*3/uL (4.8-10.8)
[2024-08-07 10:28] LABS: Estimated Average Glucose 117 mg/dL; Hemoglobin A1C 139.4034 umol/L; Hemoglobin A1c % 5.7 % (<6.0); Total Hemoglobin (HGBA1C) 3591.6304 umol/L
[2024-08-07 10:52] LABS: Anion Gap 15 (12-20)
[2024-08-07 10:59] LABS: Alanine Aminotransferase 22 U/L (0-31); Albumin Level 3.8 g/dL (3.5-5.0); Alkaline Phosphatase 84 U/L (39-117); Aspartate Amino Transferase 17 U/L (5-31); Bilirubin Total 0.6 mg/dL (0.0-1.0); Blood Urea Nitrogen 17 mg/dL (9-16); Calcium 9.6 mg/dL (8.4-10.2); Carbon Dioxide 27 mmol/L (22-29); Chloride 106 mmol/L (96-108); Cholesterol 243 mg/dL (<200); Estimated Glomerular Filt Rate > 60; Glucose Fasting 118 mg/dL (60-99); HDL Cholesterol 51 mg/dL (>40); LDL Cholesterol Calculated 166 mg/dL (<100); Potassium 4.2 mmol/L (3.3-5.1); Sodium 144 mmol/L (135-145); Total Protein 6.5 g/dL (6.5-8.0); Triglycerides 130 mg/dL (<150)
== END 2024-08-07 08:06 | disposition home or self-care (01) ==
LOC: HO.LAB 08:05
PROVIDERS: PCP Physician Assistant; Visit Provider Physician Assistant
DX: E78.2 Mixed hyperlipidemia (principal); R73.09 Other abnormal glucose; Z13.1 Encounter for screening for diabetes mellitus
CPT/HCPCS: 36415; 80053; 80061; 83036; 85027

== ENCOUNTER 2024-08-14 08:23 | Outpatient (AMB) | payer OTHER, SELFPAY ==
--- NOTE | 2024-08-14 08:33 | A.OFFPC_ITS ---
Vital Signs 08/14/24 08:35 Height 5 ft 2 in Weight 225 lb BMI 41.1 BP 120/72 Blood Pressure Location Lt brachial Position Sitting Pulse 66 Pulse Source Pulse Oximeter Pulse Oximetry (%) 98 Oxygen Delivery Method Room Air Intake Visit Reasons: 6 month F/U Intake Note: Patient is here to follow up on Polyarthralgia, IGM, HLD. Raw Hide Trimmer Required: No Head Waitress: Present Accompanied by: Spouse Allergies No Known Allergies [No Known Allergies*] Allergy (Verified 08/14/24 08:34) Tobacco use date assessed: 08/14/24 Dental Screening Dental Screen Date: 02/07/24 HPI 6 month F/U HPI Details Lynette is a 59-year-old female here today for a visit.? Patient has a past medical history significant for hyperlipidemia, generalized anxiety disorder.? Concern--> she reports recently having COVID infection and has had lingering sinus and nasal congestion. She does report a mild productive cough. Will supply patient with antibiotics for possible secondary bacterial infection. Hand osteoarthritis: Followed by [facility] and has been getting injections in her hands. She has also followed by orthopedic surgeon in [place] in his considering injections in her right shoulder as she has rotator cuff tendinopathy. .. Generalized anxiety disorder:? Patient has been under lot of stress due to family issues and her mom's failing health.? She does use clonazepam on nearly daily basis for her anxiety and sleep. She does understand the habit-forming nature of benzodiazepines .. Hyperlipidemia:? Patient's most recent fasting lipids continued elevated total cholesterol and LDL though much improved since starting statin. She reports she is consistent with taking her pravastatin. ? Of note does have a family history of coronary artery disease and peripheral artery disease. PLAN: Will transitioned to atorvastatin 40 mg for higher potency statin. . Laboratory Tests 02/03/24 08/07/24 07:30 08:21 RBC 4.48 Creatinine 0.61 Fasting Glucose 118 H Hemoglobin A1c % 5.7 Cholesterol 241 H 243 H LDL Cholesterol, C alc 161 H 166 H PFSH Medical History Colon adenomas Arthritis History of depression History of anxiety Hyperlipidemia Surgical History Hx of colonoscopy Hx of section Family History Paternal Grandmother FH: colon cancer Paternal Aunt FH: colon cancer Mother Colon polyps Father Vascular dementia Social History Household Members: Spouse Housing: Condominium Alcohol intake: former Year quit: 25 Patient Tobacco Use Status: Never used Tobacco e-Cigarette/Vaping Use: Never Used Second Hand Smoke Exposure: No service: No Current occupational status: employed 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 Esa Cool, Verona Weems, Vince Esquivel and colleagues, with an educational emmy from [employer]. Review of Systems Const Denies headache(s) Eyes Denies loss of vision ENT Denies vertigo, Denies dizziness, Reports facial pain, Denies headache(s), Reports sinus pain and Denies sore throat Card Denies chest pain, Denies leg edema and Denies lightheadedness Resp Reports cough, Denies hemoptysis and Denies wheezing GI Denies abdominal pain, Denies melena, Denies constipation, Denies diarrhea and Denies vomiting Denies urinary frequency, Denies dysuria and Denies urinary urgency Musc Denies arthralgias, Denies joint swelling, Denies numbness and Denies tingling Neuro Denies Abnormal speech present, Denies behavioral changes, Denies vertigo, Denies dizziness, Denies headache(s), Denies loss of vision, Denies memory loss, Denies numbness and Denies tingling Psych Denies anxiety, Denies behavioral changes, Denies depression, Denies memory loss and Denies panic attacks Jerome/Lymph Denies easy bleeding and Denies easy bruising Aller/Immun Denies wheezing Physical exam (Primary Care) Vital Signs: Last Vital Signs Pulse 66 08/14/24 08:35 BP 120/72 08/14/24 08:35 Pulse Ox 98 08/14/24 08:35 Oxygen Delivery Method Room Air 08/14/24 08:35 BMI result Body Mass Index 41.1 Tobacco/Smoking Status: Tobacco use Status Tobacco use date assessed 08/14/24 08/14/24 08:37 Patient Tobacco Use Status Never used Tobacco 08/14/24 08:37 e-Cigarette/Vaping Use Never Used 08/14/24 08:37 Thrive Assessment: Date of Thrive Assessment Date Thrive assessed 02/07/24 08/14/24 08:37 Const General: healthy appearing, no acute distress, alert and awake Nutritional Appearance: well nourished Orientation/consciousness: oriented to person, oriented to place and oriented to time HENMT Ears: TM's normal bilaterally General nose exam: Normal nasal mucous membranes and turbinates present Eyes Conjunctivae: conjunctivae normal Sclerae: sclerae normal Pupils: Equal, round and reactive pupils present Neck Neck: Yes no lymphadenopathy and Yes no JVD Thyroid: Thyroid normal Carotids: no bruits Resp Effort & Inspection: normal respiratory effort and not tachypneic Auscultation: no crackles, no rales, no rhonchi and no wheezes Cardio Rate: regular rate Rhythm: regular rhythm Heart sounds: no murmurs and normal S1 and S2 GI Palpation (GI): Soft to palpation, nontender, no hepatomegaly and no splenomegaly Auscultation: normal bowel sounds Skin General skin exam: no rashes or lesions noted and dry skin Neuro General: oriented to person, oriented to place and oriented to time Cranial nerves: Yes Equal, round and reactive pupils present Speech: No Abnormal speech present Gait exam (Neuro): Normal gait present Motor exam (neuro): no tremor noted Extrem Right upper extremity: full ROM Left upper extremity: full ROM Right lower extremity: full ROM; no edema Left lower extremity: full ROM; no edema Psych Mental Status: mental status grossly normal Speech and movement: Normal speech and movement present Affect: normal affect Attitude: cooperative Thought process: Normal thought process present Office Procedures Flu Questionnaire Does the patient have a severe egg allergy?: No Does the patient have severe life threatening allergies?: No Does the patient have a fever or illness today?: No Has the patient ever had Guillain-Whitman Syndrome?: No Has the patient ever had any past reaction to a flu shot?: No Immunizations Fluarix Triv [id number] (PF) 45 mcg (15 mcg x 3)/0.5 mL IM syringe Performing Provider: Kunal Bal PA-C [facility] [place] Administered by: BRENDEN Winters on 08/14/24 08:51 Dose Route Admin Location Dispensed Lot Number Expiration Date [facility] Real Estate Administrative Assistant 0.5 mL IM Left Deltoid 0.5 mL [id number] 04/08/25 [id number] Sprinkle VIS Given Date VIS Provided VIS Publication Date 08/14/24 Single Vaccine 21 Eligibility Eligibility Date Funding Source Not [facility] Eligible 08/14/24 Private Coding Level of Care Code Est Pt Level 4 (41288) Diagnoses Mixed hyperlipidemia E78.2 Hyperlipidemia type: mixed hyperlipidemia ABBY (generalized anxiety disorder) F41.1 Chronic fatigue R53.82 Subacute frontal sinusitis J01.10 Chronicity: subacute Sinusitis location: frontal Assessment & Plan Assessment & Plan (1) HLD (hyperlipidemia): Code(s): E78.5 - Hyperlipidemia, unspecified Category: Medical Qualifiers: Hyperlipidemia type: mixed hyperlipidemia Qualified Code(s): E78.2 - Mixed hyperlipidemia Plan: Patient's most recent lipid panel continues to show elevated total cholesterol and LDL. Will transition pravastatin to atorvastatin 40 mg for higher potency for better control of her total cholesterol and LDL. Goal LDL to be below 130 due to patient's family history of heart disease. (2) ABBY (generalized anxiety disorder): Code(s): F41.1 - Generalized anxiety disorder Category: Medical Plan: Patient's reports she continues to have stress and anxiety. She does use clonazepam a nearly daily basis. She does understand the habit-forming nature of benzodiazepines. She does report clonazepam works wonderfully to reduce her racing thoughts and anxiety symptoms. (3) Chronic fatigue: Code(s): R53.82 - Chronic fatigue, unspecified Category: Medical Plan: Patient reports chronic fatigue over the last several years. She does admit to being very busy in her personal life which is likely reason for her fatigue. Labs are stable with the exception of elevated cholesterol. (4) Sinusitis: Code(s): J32.9 - Chronic sinusitis, unspecified Category: Medical Qualifiers: Chronicity: subacute Sinusitis location: frontal Qualified Code(s): J01.10 - Acute frontal sinusitis, unspecified Plan: Patient recently had COVID though has been left with sinus pressure and nasal congestion. She does report coughing up some sputum from time to time. She feels that she may have an infection. Will supply patient with amoxicillin for possible secondary bacterial infection. Orders: Orders Comprehensive Joaquin. Panel Fast Today R73.09 - Other abnormal glucose Hemoglobin A1c Today R73.09 - Other abnormal glucose ECG 12 lead EKG Today R53.82 - Chronic fatigue, unspecified, Z82.49 - Family history of ischemic heart disease and other diseases of the circulatory system Influenza [id number] Immunization Today Z23 - Encounter for immunization Lipid Panel Today E78.2 - Mixed hyperlipidemia Complete Blood Count no Diff Today E78.2 - Mixed hyperlipidemia Medications: New atorvastatin 40 mg PO DAILY 90 tabs 1RF 90 days E78.2 - Mixed hyperlipidemia Refilled naproxen 375 mg PO BID 60 tabs 3RF E78.2 - Mixed hyperlipidemia amoxicillin 500 mg PO Q8H 15 caps 0RF 5 days K08.89 - Other specified disorders of teeth and supporting structures Discontinued pravastatin Discontinued Reason: Doctor's Order 20 mg PO BEDTIME 90 tabs 1RF E78.2 - Mixed hyperlipidemia Patient Instructions: Goal: LDL to be below 130 Barriers: Adherence to physical activity healthy habits
[2024-08-14 08:35] VITALS: BP 120/72; PULSE 66; O2SAT 98; BMI 41.1
== END 2024-08-14 09:27 | disposition home or self-care (01) ==
LOC: HO.HMCH 08:23
PROVIDERS: PCP Physician Assistant; Visit Provider Physician Assistant
DX: E78.2 Mixed hyperlipidemia (principal); F41.1 Generalized anxiety disorder; R53.82 Chronic fatigue, unspecified; J01.10 Acute frontal sinusitis, unspecified; Z23 Encounter for immunization

== ENCOUNTER → 2024-08-14 08:23 | Outpatient (BNVA) | payer OTHER, SELFPAY | PROVIDERS: PCP Physician Assistant; Visit Provider Physician Assistant | DX: Z23 Encounter for immunization (principal); E78.2 Mixed hyperlipidemia; F41.1 Generalized anxiety disorder; R53.82 Chronic fatigue, unspecified; J01.10 Acute frontal sinusitis, unspecified | CPT/HCPCS: 90471; 90656; 99212 ==

== ENCOUNTER 2025-01-29 09:00 | Outpatient (RCR) | payer MEDICAID, SELFPAY ==
[2025-01-10 12:59] VITALS: BP 116/63; PULSE 71
--- NOTE | 2025-01-10 14:01 | MHC.PT.EP ---
[facility] [place] Office [place] Office [place] Office [address]ari Dunne [address] [phone] F: [phone] F: [phone] F: [phone] F: [phone] Physical Therapy Plan of Care Date of Evaluation: 01/10/25 Date of Surgery: NA Diagnosis: Benign paroxysmal vertigo Assessment: Lissa is a 59 year old female who is referred to PT for BPPV . She reports of having sudden onset of room spinning dizziness about 10 days back following a stomach bug. She reports of having dizziness with supine <> sit, looking up and quick head turns and her symptoms lasts only for a few seconds. She also reports of having nausea. On PT examination she presented with intact saccades, smooth pursuit, visual tracking, negative VBI, and negative head thrust. She was positive for BPPV- only dizziness reported- [facility]agmus [facility]. She lives with her family and in independent with all ADLS but does them slowly due to dizziness. 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 She would benefit from skilled PT to address the aforementioned impairments and improve tolerance to functional activities. Frequency and Duration: The patient will be seen 2/week for 4 weeks Short Term Goals: Fundraising Consultant Goals: Patient to be educated on symptoms and indications to return to therapy when needed min 4 weeks. Pt will be negative for nystagmus or reports of vertigo in all diagnostic positions bilaterally to resolution of BPPV in 4 weeks. Patient to be able to functionally move in all planes and directions without provocation of dizziness to show return to PLOF in 4 weeks. Treatment Plan: Modalities to reduce pain, spasms and effusion. Manual therapy to restore motion and function. Therapeutic exercise to improve strength and flexibility. Neuromuscular re-education for posture and balance. Therapeutic activities to return to functional activities of daily living. Electronically signed by: Elina Cabrera PT DPT Please sign and return to therapist. Thank you for your referral.
--- NOTE | 2025-03-13 13:35 | MHC.PT.DC ---
[facility] [place] Office [place] Office [address] Bakari Dunne [address] [facility] [phone] F: [phone] F: [phone] F: [phone] F: [phone] Physical Therapy Discharge Report Diagnosis: Benign paroxysmal vertigo Date of Surgery: NA Date of Evaluation: 01/10/25 Date of Discharge: 03/13/25 Treatments to Date: 8 Cancellations to Date: 0 No Shows to Date: 0 Discharge Status: Achieved Goals Discharge Summary: Lissa has had no symptoms of vertigo in over a month. She is therefore being d/c from PT. Electronically signed by: Elina Cabrera PT DPT Please sign and return to therapist. Thank you for your referral.
== END 2025-03-13 13:35 | disposition home or self-care (01) ==
LOC: HO.PT 09:00
PROVIDERS: PCP Physician Assistant; Visit Provider Physician Assistant
DX: H81.13 Benign paroxysmal vertigo, bilateral (principal)
CPT/HCPCS: 95992; 97112; 97161

== ENCOUNTER 2025-02-11 07:36 | Outpatient (REF) | payer OTHER, SELFPAY ==
--- NOTE | 2025-02-11 07:40 | ECG_ITS ---
Test Reason : chronic fatigue Blood Pressure : */* mmHG Vent. Rate : 60 BPM Atrial Rate : 60 BPM P-R Int : 158 ms QRS Dur : 64 ms QT Int : 390 ms P-R-T Axes : 60 14 58 degrees QTcB Int : 390 ms Normal sinus rhythm Nonspecific ST abnormality Abnormal ECG No previous ECGs available Referred By: Kunal Bal Electronically Signed By: GEOVANNI JOHNSON
[2025-02-11 08:27] LABS: Hematocrit 43.1 % (37.0-47.0); Hemoglobin 14.4 g/dl (12.0-16.0); Mean Corpuscular HGB Conc 33.4 g/dl (31.0-35.0); Mean Corpuscular Hemoglobin 30.8 pg (27.0-33.0); Mean Corpuscular Volume 92.3 fL (80.0-98.0); Mean Platelet Volume 10.1 fL (9.4-12.3); Platelet Count 421 X10*3/uL (160-400); Red Blood Count 4.67 X10*6/uL (4.20-5.50); Red Cell Distribution Width 12.2 % (11.0-16.0); White Blood Count 6.9 X10*3/uL (4.8-10.8)
[2025-02-11 08:41] LABS: Estimated Average Glucose 108 mg/dL; Hemoglobin A1C 133.9111 umol/L; Hemoglobin A1c % 5.4 % (<6.0)
[2025-02-11 08:47] LABS: Alanine Aminotransferase 16 U/L (0-31); Albumin Level 4.1 g/dL (3.5-5.0); Alkaline Phosphatase 88 U/L (39-117); Anion Gap 13 (12-20); Aspartate Amino Transferase 17 U/L (5-31); Bilirubin Total 0.7 mg/dL (0.0-1.0); Blood Urea Nitrogen 15 mg/dL (9-16); Calcium 9.4 mg/dL (8.4-10.2); Carbon Dioxide 24 mmol/L (22-29); Chloride 108 mmol/L (96-108); Cholesterol 219 mg/dL (<200); Estimated Glomerular Filt Rate > 60; Glucose Fasting 105 mg/dL (60-99); HDL Cholesterol 48 mg/dL (>40); LDL Cholesterol Calculated 150 mg/dL (<100); Potassium 3.9 mmol/L (3.3-5.1); Sodium 141 mmol/L (135-145); Total Protein 6.8 g/dL (6.5-8.0); Triglycerides 109 mg/dL (<150)
== END 2025-02-11 07:37 | disposition home or self-care (01) ==
LOC: HO.LAB 07:36
PROVIDERS: PCP Physician Assistant; Visit Provider Physician Assistant
DX: E78.2 Mixed hyperlipidemia (principal); R73.09 Other abnormal glucose; R53.82 Chronic fatigue, unspecified; Z82.49 Family history of ischemic heart disease and other diseases of the circulatory system
CPT/HCPCS: 36415; 80053; 80061; 83036; 85027; 93005

== ENCOUNTER → 2025-02-11 07:40 | Outpatient (BNV) | payer MEDICAID, SELFPAY | PROVIDERS: PCP Physician Assistant; Visit Provider Internal Medicine | DX: R53.82 Chronic fatigue, unspecified (principal) | CPT/HCPCS: 93010 ==

== ENCOUNTER 2025-02-12 08:17 | Outpatient (AMB) | payer OTHER, SELFPAY ==
--- NOTE | 2025-02-12 08:29 | A.OFFPC_ITS ---
Vital Signs 02/12/25 08:32 Height 5 ft 2 in Weight 205 lb 12.8 oz BMI 37.6 BP 118/78 Blood Pressure Location Lt brachial Position Sitting Pulse 67 Pulse Source Pulse Oximeter Temp 97.1 F Temp Source Temporal Artery Scan Pulse Oximetry (%) 97 Oxygen Delivery Method Room Air Intake Visit Reasons: 6 month f/u Intake Note: Patient is here to follow up on HLD, Polyarthralgia. Esthetician Makeup Artist Required: No Fitness Assistant: Not Required per policy Accompanied by: Self / Same As Patient Allergies No Known Allergies [No Known Allergies*] Allergy (Verified 02/12/25 08:58) Medication List - Last Reconciled 02/12/25 by Kunal Bal PA-C acetaminophen (Tylenol) 650 mg PO atorvastatin 40 mg PO DAILY 90 days clonazepam 0.5 mg (1/2 x 1 mg) PO BID 30 days lidocaine 5% 1 patch topical DAILY 30 days naproxen 375 mg PO BID Tobacco use date assessed: 02/12/25 Dental Screening Dental Screen Date: 02/12/25 Did you have a dental visit in the last 12 months?: Yes Did you have a dental problem in the last 6 months where you did not have access to dental care?: No Was dental information given to patient?: Patient has dentist HPI 6 month f/u HPI Details Lynette is a 59-year-old female here today for a visit.? Patient has a past medical history significant for hyperlipidemia, generalized anxiety disorder.? Concern--> reports having a sinus infection lately, has used bftf-pkv-peopdly meds without much relief. . .. Generalized anxiety disorder:? Patient has been under lot of stress due to family issues and her mom's failing health.? She does use clonazepam on nearly daily basis for her anxiety and sleep. She does understand the habit-forming nature of benzodiazepines. .. Class 2 obesity: Has been working with weight watchers and has been able to lose weight. Has been more particular with her dietary choices. .. Hyperlipidemia:? Patient continues on atorvastatin 40 mg, has been going to weight watchers and lost 20 lb. Most recent lipid panel showing improved total cholesterol and LDL. .. Impaired glucose metabolism: Recent fasting blood sugar improved. Again patient has lost 20 lb since last office visit going to weight watchers. . Laboratory Tests 04/26/24 10/29/24 07:30 08:21 RBC 4.48 Creatinine 0.61 Fasting Glucose 118 H Hemoglobin A1c % 5.7 Cholesterol 241 H 243 H LDL Cholesterol, C alc 161 H 166 H PFSH Medical History Colon adenomas Arthritis History of depression History of anxiety Hyperlipidemia Surgical History Hx of colonoscopy Hx of section Family History Paternal Grandmother FH: colon cancer Paternal Aunt FH: colon cancer Mother Colon polyps Father Vascular dementia Social History Household Members: Spouse Housing: Condominium Alcohol intake: former Year quit: 25 Patient Tobacco Use Status: Never used Tobacco e-Cigarette/Vaping Use: Never Used Second Hand Smoke Exposure: No service: No Current occupational status: employed 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 1. Little interest or pleasure in doing things: not at all 2. Feeling down, depressed, or hopeless: not at all 3. Trouble falling or staying asleep, or sleeping too much: not at all 4. Feeling tired or having little energy: not at all 5. Poor appetite or overeating: not at all 6. Feeling bad about yourself - or that you are a failure or have let yourself or your family down: not at all 7. Trouble concentrating on things, such as reading the newspaper or watching television: not at all 8. Moving or speaking so slowly that other people could have noticed. Or the opposite - being so fidgety or restless that you have been moving around a lot more than usual: not at all 9. Thoughts that you would be better off or of hurting yourself in some way: not at all Total score: 0 Depression Screening Interpretation: Negative Depression Screening Done: Yes 99802 - PHQ-9 Billing: Yes Source: Developed by Drs. Verona Tavares, Vince Esquivel and colleagues, with an educational emmy from [employer]. Thrive Questionnaire Date Thrive assessed: 02/12/25 I am a: Patient What is your living situation today?: I have a steady place to live Within the past 12 months, did the food you bought not last and you didn't have the money to get more?: Never true Within the past 12 months, did you worry whether your food would run out before you got money to buy more?: Never true Do you have trouble paying for medicines?: No Do you have trouble getting transportation to medical appointments?: No Do you have trouble paying your heating and electricity bill?: No Do you have trouble taking care of your child, family member or friend?: No Do you have trouble with day-to-day activities such as bathing, preparing meals, shopping, managing finances, etc.?: No Are you currently unemployed and looking for a job?: No Are you interested in more education?: No Please select the resources that you would like help with: None Currently or been in a relationship where the following occur: No concerns r eported THRIVE Score: 0 AUDIT C Alcohol Use Questionnaire (AUDIT-C) 1. How often do you have a drink containing alcohol?: Never Total Score: 0 Score Reviewed/Action Taken: No ABBY-7 AMB Questionnaire ABBY-7 Date ABBY - 7 assessed: 02/12/25 Feeling nervous, anxious, or on edge: 0 = Not at all Not being able to stop or control worryin = Not at all Worrying too much about different things: 0 = Not at all Trouble relaxin = Not at all Being so restless that it is hard to sit still: 0 = Not at all Becoming easily annoyed or irritable: 0 = Not at all Feeling afraid as if something awful might happen: 0 = Not at all Total ABBY-7 score (0-4 normal; 5-9 mild; 10-14 moderate; 15-21 severe): 0 Source: Developed by Verona Cuellar, Vince Esquivel and colleagues, with an educational emmy from [employer]. ABBY-7 Assessment Billing ABBY-7 Assessment Tool: ABBY-7 Assessment 15300 Review of Systems Const Denies headache(s) Eyes Denies loss of vision ENT Denies vertigo, Denies dizziness, Denies headache(s) and Denies sore throat Card Denies chest pain, Denies leg edema and Denies lightheadedness Resp Denies cough, Denies hemoptysis and Denies wheezing GI Denies abdominal pain, Denies melena, Denies constipation, Denies diarrhea and Denies vomiting Denies urinary frequency, Denies dysuria and Denies urinary urgency Musc Denies arthralgias, Denies joint swelling, Denies numbness and Denies tingling Neuro Denies Abnormal speech present, Denies behavioral changes, Denies vertigo, Denies dizziness, Denies headache(s), Denies loss of vision, Denies memory loss, Denies numbness and Denies tingling Psych Denies anxiety, Denies behavioral changes, Denies depression, Denies memory loss and Denies panic attacks Jerome/Lymph Denies easy bleeding and Denies easy bruising Aller/Immun Denies wheezing Physical exam (Primary Care) Vital Signs: Last Vital Signs Temp 97.1 F 02/12/25 08:32 Pulse 67 02/12/25 08:32 BP 118/78 02/12/25 08:32 Pulse Ox 97 02/12/25 08:32 Oxygen Delivery Method Room Air 02/12/25 08:32 BMI result Body Mass Index 37.6 BMI Assessment/Plan discussion: High BMI High, discussed plan: lifestyle, weight reduction, dietary and physical activity Tobacco/Smoking Status: Tobacco use Status Tobacco use date assessed 02/12/25 02/12/25 08:32 Patient Tobacco Use Status Never used Tobacco 02/12/25 08:41 e-Cigarette/Vaping Use Never Used 02/12/25 08:41 PHQ-9: PHQ-9 Score PHQ-9: Total score 0 02/12/25 09:03 Depression Screening Interpretation: Negative Thrive Assessment: Date of Thrive Assessment Date Thrive assessed 02/12/25 02/12/25 08:32 Currently or been in a relationship where the following occur: No concerns reported Const General: healthy appearing, no acute distress, alert and awake Nutritional Appearance: well nourished Orientation/consciousness: oriented to person, oriented to place and oriented to time HENMT Ears: TM's normal bilaterally General nose exam: Normal nasal mucous membranes and turbinates present Eyes Conjunctivae: conjunctivae normal Sclerae: sclerae normal Pupils: Equal, round and reactive pupils present Neck Neck: Yes no lymphadenopathy and Yes no JVD Thyroid: Thyroid normal Carotids: no bruits Resp Effort & Inspection: normal respiratory effort and not tachypneic Auscultation: no crackles, no rales, no rhonchi and no wheezes Cardio Rate: regular rate Rhythm: regular rhythm Heart sounds: no murmurs and normal S1 and S2 GI Palpation (GI): Soft to palpation, nontender, no hepatomegaly and no splenomegaly Auscultation: normal bowel sounds Skin General skin exam: no rashes or lesions noted and dry skin Neuro General: oriented to person, oriented to place and oriented to time Cranial nerves: Yes Equal, round and reactive pupils present Speech: No Abnormal speech present Gait exam (Neuro): Normal gait present Motor exam (neuro): no tremor noted Extrem Right upper extremity: full ROM Left upper extremity: full ROM Right lower extremity: full ROM; no edema Left lower extremity: full ROM; no edema Psych Mental Status: mental status grossly normal Speech and movement: Normal speech and movement present Affect: normal affect Attitude: cooperative Thought process: Normal thought process present Coding Level of Care Code Est Pt Level 4 (94308) Diagnoses Subacute frontal sinusitis J01.10 Chronicity: subacute Sinusitis location: frontal Mixed hyperlipidemia E78.2 Hyperlipidemia type: mixed hyperlipidemia ABBY (generalized anxiety disorder) F41.1 Class 2 obesity E66.812 Additional Codes ABBY-7 Assessment Billing - ABBY-7 Assessment Tool: ABBY-7 Assessment 37226 ([id number]) PHQ-9 - 19557 - PHQ-9 Billing: Yes ([id number]) Assessment & Plan Assessment & Plan (1) Sinusitis: Code(s): J32.9 - Chronic sinusitis, unspecified Category: Medical Qualifiers: Chronicity: subacute Sinusitis location: frontal Qualified Code(s): J01.10 - Acute frontal sinusitis, unspecified Plan: Patient reports over the last few weeks having sinus pain and congestion. Usually treat with a Z-Tung with good resolution of her symptoms. (2) HLD (hyperlipidemia): Code(s): E78.5 - Hyperlipidemia, unspecified Category: Medical Qualifiers: Hyperlipidemia type: mixed hyperlipidemia Qualified Code(s): E78.2 - Mixed hyperlipidemia Plan: Patient's most recent lipid panel showing improvement in her total cholesterol and LDL. She has lost 20 lb since last office visit using weight watchers. She continues on statin therapy as well. Goal LDL to be below 130 due to patient's family history of heart disease. (3) ABBY (generalized anxiety disorder): Code(s): F41.1 - Generalized anxiety disorder Category: Medical Plan: Patient's reports she continues to have stress and anxiety. She does use clonazepam a nearly daily basis. She does understand the habit-forming nature of benzodiazepines. She does report clonazepam works wonderfully to reduce her racing thoughts and anxiety symptoms. (4) Class 2 obesity: Code(s): E66.812 - Obesity, class 2 Category: Medical Plan: Patient does understand her BMI is over 35 and will continue working with weight watchers on better eating habits to reduce her weight. Of note she has lost 20 lb since last office visit Orders: Orders Complete Blood Count no Diff Today E78.2 - Mixed hyperlipidemia Lipid Panel Today E78.2 - Mixed hyperlipidemia Comprehensive [place]. Panel Fast Today E78.2 - Mixed hyperlipidemia Medications: New azithromycin For 250 mg dose pack: take 500 mg today (day 1), then 250 mg for 4 days (days 2-5) PO 6 tabs 0RF J01.10 - Acute frontal sinusitis, unspecified Refilled atorvastatin 40 mg PO DAILY 90 tabs 1RF 90 days E78.2 - Mixed hyperlipidemia naproxen 375 mg PO BID 60 tabs 3RF E78.2 - Mixed hyperlipidemia clonazepam 0.5 mg (1/2 x 1 mg) PO BID 30 tabs 2RF 30 days F41.1 - Generalized anxiety disorder Patient Instructions: Goal: LDL to be below 130, continue losing weight Barriers: Adherence to physical activity
[2025-02-12 08:32] VITALS: BP 118/78; PULSE 67; TEMP 36.2; O2SAT 97; BMI 37.6
== END 2025-02-12 09:13 | disposition home or self-care (01) ==
LOC: HO.HMCH 08:18
PROVIDERS: PCP Physician Assistant; Visit Provider Physician Assistant
DX: J01.10 Acute frontal sinusitis, unspecified (principal); E78.2 Mixed hyperlipidemia; E66.812 Obesity, class 2; Z68.37 Body mass index [BMI] 37.0-37.9, adult; F41.1 Generalized anxiety disorder

== ENCOUNTER → 2025-02-12 08:17 | Outpatient (BNVA) | payer OTHER, SELFPAY | PROVIDERS: PCP Physician Assistant; Visit Provider Physician Assistant | DX: J01.10 Acute frontal sinusitis, unspecified (principal); E78.2 Mixed hyperlipidemia; F41.1 Generalized anxiety disorder; E66.812 Obesity, class 2; Z68.37 Body mass index [BMI] 37.0-37.9, adult; Z79.899 Other long term (current) drug therapy | CPT/HCPCS: 96127; 99212 ==

== ENCOUNTER 2025-08-19 07:57 | Outpatient (REF) | payer OTHER, SELFPAY ==
--- OUTSIDE RECORDS SUMMARY | 2025-08-19 08:01 | XMS_ITS | Clinical Summary ---
Author Organization [facility] Address [address] [facility] [address] [place] [id number] Phone Care Team Providers Care Adventure Education Teacher Name Role Phone Kunal Bal Primary Care Provider + Allergies No known active allergies Medications clonazePAM (KLONOPIN) 1 MG tablet TAKE 1/2 TABLET 0.5MG) BY MOUTH TWO TIMES A DAY 01/19/2024 Active naproxen (NAPROSYN) 375 MG tablet Take 1 tablet by mouth 2 (two) times a day. 01/19/2024 Active pravastatin (PRAVACHOL) 20 MG tablet Take 20 mg by mouth nightly at bedtime. 11/21/2023 Active Active Problems No known active problems Social History Tobacco Use Types Packs/Day Years Used Date Smoking Tobacco: Never Smokeless Tobacco: Never Tobacco Cessation:Counseling Given: Not Answered Education Answer Date Recorded Are you interested in more education? Not on shorty e 01/03/2024 Are you concerned about learning? Not on file 01/03/2024 No 01/03/2024 No 01/03/2024 Digital Access Answer Date Recorded No 01/03/2024 No 01/03/2024 Reliable internet access at home? Not on file 01/03/2024 Device with a working camera? Not on file Comments Unknown Sex and Gender Information Value Date Recorded Sex Assigned at Not on file Legal Sex Female 9:44 PM EDT Gender Identity Not on file Sexual Orientation Not on file Plan of Treatment Health Maintenance Due Date Last Done Comments LIPID PANEL 1963 DEPRESSION SCREENING 1975 HEPATITIS C SCREENING 1981 HIV ONE-TIME SCREENING (18-65 YEARS) 1981 PAP SMEAR 1984 MAMMOGRAM 2003 COLOGUARD 2008 COLONOSCOPY 2008 COLORECTAL CANCER SCREENING 2008 FIT TEST 2008 FOBT 2008 SIGMOIDOSCOPY 2008 VIRTUAL COLONOSCOPY 2008 PNEUMOCOCCAL VACCINES (50+ years) (1 of 1 - PCV) 2013 ZOSTER VACCINES (1 of 2) 2013 INFLUENZA VACCINE (#1) 2025 , 07/19/2023, 07/08/2022, Additional history exists COVID-19 VACCINE ( - 2024- season) 2025 01/23/2022, 02/11/2021, 01/21/2021, Additional history exists Adult Td,Tdap Booster 05/20/2030 05/20/2020 RSV VACCINE (1 - 1-dose 75+ series) 2038 SMOKING STATUS SCREENING (Once After 26 Yrs) Completed 02/02/2024 HEPATITIS A VACCINES Aged Out No long er eligible based on patient's age to complete this topic HIB VACCINES Aged Out No longer eligi ble based on patient's age to complete this topic MENINGOCOCCAL VACCINES (ACWY) Aged Out No longer eligible based on patient's age to complete this topic MENINGOCOCCAL VACCINES (B) Aged Out N o longer eligible based on patient's age to complete this topic Medical Devices Not on file Insurance [facility] ACO [place] [address] [place] [address] ACO ACO [id number] Care Teams Adventure Education Teacher Relationship Specialty Start Date End Date Kunal Bal PA [address] [place] [id number] PCP - General 3/26/24 Additional Source Comments The information contained in this document represents components of the legal health record. It is not the complete legal health record.[facility]
[2025-08-19 08:25] LABS: Hematocrit 42.6 % (37.0-47.0); Hemoglobin 13.9 g/dl (12.0-16.0); Mean Corpuscular HGB Conc 32.6 g/dl (31.0-35.0); Mean Corpuscular Hemoglobin 30.7 pg (27.0-33.0); Mean Corpuscular Volume 94.0 fL (80.0-98.0); NRBC Abs Auto 0.000 X10*3/uL (0.0-0.012); NRBC Pct Auto 0.0 /100WBC (0.0-0.2); Platelet Count 357 X10*3/uL (160-400); Red Blood Count 4.53 X10*6/uL (4.20-5.50); White Blood Count 6.9 X10*3/uL (4.8-10.8)
[2025-08-19 08:49] LABS: Alanine Aminotransferase 17 U/L (0-31); Albumin Level 4.2 g/dL (3.5-5.0); Alkaline Phosphatase 96 U/L (39-117); Anion Gap 11 (12-20); Aspartate Amino Transferase 19 U/L (5-31); Blood Urea Nitrogen 10 mg/dL (9-16); Calcium 9.5 mg/dL (8.4-10.2); Carbon Dioxide 27 mmol/L (22-29); Chloride 107 mmol/L (96-108); Cholesterol 176 mg/dL (<200); Estimated Glomerular Filt Rate > 60; HDL Cholesterol 49 mg/dL (>40); Potassium 3.9 mmol/L (3.3-5.1); Sodium 141 mmol/L (135-145); Total Protein 6.5 g/dL (6.5-8.0); Triglycerides 78 mg/dL (<150)
== END 2025-08-19 07:58 | disposition home or self-care (01) ==
LOC: HO.LAB 07:57
PROVIDERS: Visit Provider Physician Assistant
DX: E78.2 Mixed hyperlipidemia (principal)
CPT/HCPCS: 36415; 80053; 80061; 85027

== ENCOUNTER 2025-08-20 08:19 | Outpatient (AMB) | payer OTHER, SELFPAY ==
--- NOTE | 2025-08-20 08:21 | MHC.PC.OV ---
Vital Signs 08/20/25 08:24 Height 5 ft 2 in Weight 185 lb 4 oz BMI 33.9 BP 122/62 Blood Pressure Location Lt brachial Position Sitting Pulse 56 Pulse Source Pulse Oximeter Temp 97.1 F Temp Source Temporal Artery Scan Pulse Oximetry (%) 98 Oxygen Delivery Method Room Air Intake Visit Reasons: 6 month f/u Intake Note: Patient is here to follow up on Polyarthralgia, HLD. 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 Patient has a past medical history significant for hyperlipidemia, generalized anxiety disorder.? Concern--> she is concerned about a skin lesion over her mid upper back that has been itchy. She is concerned as her parents had skin cancer. PLAN: Will continue watch and wait methadone place triple antibiotic on the lesion. .. Generalized anxiety disorder:? Patient has been under lot of stress due to family issues and her mom's failing health.? She does use clonazepam on nearly daily basis for her anxiety and sleep. She does admit to using clonazepam on a nightly basis. .. Class 1 obesity: Has been working with weight watchers and has been able to lose weight. Has been more particular with her dietary choices. .. Hyperlipidemia:? Patient continues on atorvastatin 40 mg, has been doing weight watchers program in his lost significant amount of weight. She would like to decrease her statin potency is her total cholesterol and LDL has drastically reduced . Most recent lipid panel showing improved total cholesterol and LDL. .. Impaired glucose metabolism: Believes she has an element of insulin resistance. Recent fasting blood sugar improved. Again has lost significant amount of weight since working closely with the weight watchers program. . Laboratory Tests 02/03/24 08/07/24 07:30 08:21 RBC 4.48 Creatinine 0.61 Fasting Glucose 118 H Hemoglobin A1c % 5.7 Cholesterol 241 H 243 H LDL Cholesterol, C alc 161 H 166 H Laboratory Tests 08/07/24 02/11/25 08/19/25 08:21 07:42 08:06 RBC 4.67 4.53 Hgb 13.9 Creatinine 0.70 Fasting Glucose 118 H 105 H 104 H Hemoglobin A1c % 5.7 5.4 Cholesterol 243 H 219 H 176 LDL Cholesterol, C alc 166 H 150 H 112 H PFSH Medical History Colon adenomas Arthritis History of depression History of anxiety Hyperlipidemia Surgical History Hx of colonoscopy Hx of section Family History Paternal Grandmother FH: colon cancer Paternal Aunt FH: colon cancer Mother Colon polyps Father Vascular dementia Social History Household Members: Spouse Housing: Condominium Alcohol intake: former Year quit: 25 Patient Tobacco Use Status: Never used Tobacco e-Cigarette/Vaping Use: Never Used Second Hand Smoke Exposure: No service: No Current occupational status: employed 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 Current occupational exposures/hazards: No Cognitive needs: No Hearing needs: No Vision needs: Yes (Glasses) Questionnaire Thrive Questionnaire Date Thrive assessed: 02/12/25 I am a: Patient What is your living situation today?: I choose not to answer this question Within the past 12 months, did the food you bought not last and you didn't have the money to get more?: I choose not to answer this question Within the past 12 months, did you worry whether your food would run out before you got money to buy more?: I choose not to answer this question Do you have trouble paying for medicines?: I choose not to answer this question Do you have trouble getting transportation to medical appointments?: I choose not to answer this question Do you have trouble paying your heating and electricity bill?: I choose not to answer this question Do you have trouble taking care of your child, family member or friend?: I choose not to answer this question Do you have trouble with day-to-day activities such as bathing, preparing meals, shopping, managing finances, etc.?: I choose not to answer this question Are you currently unemployed and looking for a job?: I choose not to answer this question Are you interested in more education?: I choose not to answer this question Please select the resources that you would like help with: None Currently or been in a relationship where the following occur: I choose not to answer THRIVE Score: 0 ABBY-7 AMB Questionnaire ABBY-7 Date ABBY - 7 assessed: 02/12/25 Source: Developed by Drs. Esa Cool, Verona Weems, Vince Esquivel and colleagues, with an educational emmy from [employer]. Review of Systems Const Denies headache(s) Eyes Denies loss of vision ENT Denies vertigo, Denies dizziness, Denies headache(s) and Denies sore throat Card Denies chest pain, Denies leg edema and Denies lightheadedness Resp Denies cough, Denies hemoptysis and Denies wheezing GI Denies abdominal pain, Denies melena, Denies constipation, Denies diarrhea and Denies vomiting Denies urinary frequency, Denies dysuria and Denies urinary urgency Musc Denies arthralgias, Denies joint swelling, Denies numbness and Denies tingling Neuro Denies Abnormal speech present, Denies behavioral changes, Denies vertigo, Denies dizziness, Denies headache(s), Denies loss of vision, Denies memory loss, Denies numbness and Denies tingling Psych Denies anxiety, Denies behavioral changes, Denies depression, Denies memory loss and Denies panic attacks Jerome/Lymph Denies easy bleeding and Denies easy bruising Aller/Immun Denies wheezing Physical exam (Primary Care) Vital Signs: Last Vital Signs Temp 97.1 F 08/20/25 08:24 Pulse 56 08/20/25 08:24 BP 122/62 08/20/25 08:24 Pulse Ox 98 08/20/25 08:24 Oxygen Delivery Method Room Air 08/20/25 08:24 BMI result Body Mass Index 33.9 BMI Assessment/Plan discussion: High BMI High, discussed plan: lifestyle, weight reduction, dietary and physical activity Tobacco/Smoking Status: Tobacco use Status Tobacco use date assessed 08/20/25 08/20/25 08:32 Patient Tobacco Use Status Never used Tobacco 08/20/25 08:32 e-Cigarette/Vaping Use Never Used 08/20/25 08:32 Thrive Assessment: Date of Thrive Assessment Date Thrive assessed 02/12/25 08/20/25 08:32 Currently or been in a relationship where the following occur: I choose not to answer Const General: healthy appearing, no acute distress, alert and awake Nutritional Appearance: well nourished Orientation/consciousness: oriented to person, oriented to place and oriented to time HENMT Ears: TM's normal bilaterally General nose exam: Normal nasal mucous membranes and turbinates present Eyes Conjunctivae: conjunctivae normal Sclerae: sclerae normal Pupils: Equal, round and reactive pupils present Neck Neck: Yes no lymphadenopathy and Yes no JVD Thyroid: Thyroid normal Carotids: no bruits Resp Effort & Inspection: normal respiratory effort and not tachypneic Auscultation: no crackles, no rales, no rhonchi and no wheezes Cardio Rate: regular rate Rhythm: regular rhythm Heart sounds: no murmurs and normal S1 and S2 GI Palpation (GI): Soft to palpation, nontender, no hepatomegaly and no splenomegaly Auscultation: normal bowel sounds Skin General skin exam: no rashes or lesions noted and dry skin Neuro General: oriented to person, oriented to place and oriented to time Cranial nerves: Yes Equal, round and reactive pupils present Speech: No Abnormal speech present Gait exam (Neuro): Normal gait present Motor exam (neuro): no tremor noted Extrem Right upper extremity: full ROM Left upper extremity: full ROM Right lower extremity: full ROM; no edema Left lower extremity: full ROM; no edema Psych Mental Status: mental status grossly normal Speech and movement: Normal speech and movement present Affect: normal affect Attitude: cooperative Thought process: Normal thought process present Office Procedures Flu Questionnaire Does the patient have a severe egg allergy?: No Does the patient have severe life threatening allergies?: No Does the patient have a fever or illness today?: No Has the patient ever had Guillain-[place] Syndrome?: No Has the patient ever had any past reaction to a flu shot?: No Immunizations Fluarix [id number] (PF) 45 mcg (15 mcg x 3)/0.5 mL IM syringe Performing Provider: Kunal Bal PA-C Performing Location: [facility] Administered by: Nyla Monaco CMA on 08/20/25 08:53 Dose Route Admin Location Dispensed Lot Number Expiration Date [employer] 0.5 mL IM Left Deltoid 0.5 mL [id number] 04/08/26 [id number] [employer] VIS Given Date VIS Provided VIS Publication Date 08/20/25 Single Vaccine 24 Eligibility Eligibility Date Funding Source Not [facility] Eligible 08/20/25 Private Coding Level of Care Code Est Pt Level 4 (98289) Diagnoses Mixed hyperlipidemia E78.2 Hyperlipidemia type: mixed hyperlipidemia ABBY (generalized anxiety disorder) F41.1 Class 1 obesity E66.9 Assessment & Plan Assessment & Plan (1) HLD (hyperlipidemia): Code(s): E78.5 - Hyperlipidemia, unspecified Category: Medical Qualifiers: Hyperlipidemia type: mixed hyperlipidemia Qualified Code(s): E78.2 - Mixed hyperlipidemia Plan: Patient's most recent lipid panel showing improvement in her total cholesterol and LDL. she has lost significant amount of weight and will like to reduce the potency of her statin. Will reduce her atorvastatin to 20 mg daily. Goal LDL to be below 130 due to patient's family history of heart disease. (2) ABBY (generalized anxiety disorder): Code(s): F41.1 - Generalized anxiety disorder Category: Medical Plan: Patient's reports she continues to have stress and anxiety. She does use clonazepam a nearly daily basis. She does understand the habit-forming nature of benzodiazepines. She does report clonazepam works wonderfully to reduce her racing thoughts and anxiety symptoms. (3) Class 1 obesity: Code(s): E66.9 - Obesity, unspecified Category: Medical Plan: Patient does understand her BMI is over 30 will continue working with weight watchers program to reduce her weight. She has lost significant amount of weight since early 2024 Orders: Orders Hemoglobin A1c Today R73.09 - Other abnormal glucose Lipid Panel Today E78.2 - Mixed hyperlipidemia Influenza [id number] Immunization Today Z23 - Encounter for immunization Comprehensive [place]. Panel Fast Today E78.2 - Mixed hyperlipidemia Complete Blood Count no Diff Today E78.2 - Mixed hyperlipidemia Medications: New atorvastatin (Lipitor) 20 mg PO DAILY 90 tabs 2RF 90 days E78.2 - Mixed hyperlipidemia Refilled lidocaine 5% leave on most painful area for up to 12 hrs 1 patch topical DAILY 30 ea 3RF 30 days M54.2 - Cervicalgia Patient Instructions: Goal: LDL to remain below 130 Barriers: Adherence to physical activity and healthy eating habits
[2025-08-20 08:24] VITALS: BP 122/62; PULSE 56; TEMP 36.2; O2SAT 98; BMI 33.9
--- OUTSIDE RECORDS SUMMARY | 2025-08-20 08:26 | XMS_ITS | Clinical Summary ---
Author Organization [facility] Address [address] [place] [phone] Phone Care Team Providers Care Manager Intern Name Role Phone Kunal Bal Primary Care [...] topic Medical Devices Not on file Insurance [facility] ACO [place] [address] [place] [address] ACO ACO [id number] Care Teams Manager Intern Relationship Specialty Start Date End Date Kunal Bal PA [address] [place] [id number] PCP - General 3/26/24 Additional Source Comments The information contained in this document represents components of the legal health record. It is not the complete legal health record.[facility]
== END 2025-08-20 09:04 | disposition home or self-care (01) ==
LOC: HO.HMCH 08:20
PROVIDERS: PCP Physician Assistant; Visit Provider Physician Assistant
DX: E78.2 Mixed hyperlipidemia (principal); Z68.33 Body mass index [BMI] 33.0-33.9, adult; E66.9 Obesity, unspecified; F41.1 Generalized anxiety disorder; Z23 Encounter for immunization

== ENCOUNTER → 2025-08-20 08:19 | Outpatient (BNVA) | payer OTHER, SELFPAY | PROVIDERS: PCP Physician Assistant; Visit Provider Physician Assistant | DX: Z23 Encounter for immunization (principal); E78.2 Mixed hyperlipidemia; F41.1 Generalized anxiety disorder; E66.9 Obesity, unspecified; Z68.33 Body mass index [BMI] 33.0-33.9, adult | CPT/HCPCS: 90471; 90656; 99212 ==